=== PATIENT | male | born 1955 | race Caucasian/White ===

== ENCOUNTER 2017-11-24 07:51 | Outpatient (CLI) | payer BC ==
[~2017-11-24] VITALS: Ht 172.7 cm; Wt 86.4 kg
--- NOTE | ~2017-11-24 | HEMODYNAMI ---
PATIENT:OTILIA PAZ MEDICAL RECORD: [id number] : 57 LOCATION:[facility] ADMISSION DATE: 11/24/17 Generatedon:11/24/201712:41 Patient name: OTILIA APZ Patient #: [id number] : 1955 Date of study: 11/24/2017 Page: Of Hemodynamic Procedure Report Patient Data Patient Demographics Procedure consent was obtained First Name: OTILIA Gender: Male Last Name: BRANDI : 1955 [facility] Initial: ORLANDO Age: 62 year(s) Patient #: [id number] Race: SSN: [id number] Additional ID: [id number] Contact details Address: [address] [place] [address] rd State[facility] Zip code: [address] Past Medical History Allergies Allergen Reaction Date Comments Reported Statins 11/24/2017 Statins 11/24/2017 Admission Admission Data Admission Date: 11/24/2017 Admission Time: 7:51 Lab Results Lab Result Date: 11/24/2017 Lab Result Time: 0:00 Biochemistry Name Units Result Min Max BUN mg/dl 21 --(----)-* 7 18 Creatinine mg/dl 1 --(--*-)-- 0.6 1.3 Procedure Procedure Types Cath Procedure Diagnostic Procedure [facility] w/Coronaries PCI Procedure Coronary Stent Coronary Stent Initial Procedure Description Procedure Date Procedure Date: 11/24/2017 Procedure Start Time: 12:26 Procedure End Time: 12:40 Procedure Staff Name Function Gonzalo Barriga MD Performing Physician Gómez Acevedo RT Monitor Juan F Davenport RN Nurse Gonsalo Quiñonez RT Scrub Procedure Data Cath Procedure Fluoroscopy Diagnostic fluoroscopy Total fluoroscopy Time: 1.8 time: 1.8 min min Diagnostic fluoroscopy Total fluoroscopy dose: dose: 184.42 mGy 184.42 mGy Contrast Material Contrast Material Type Amount (ml) Isovue 300 77 Entry Location Entry Primary Successful Side Size Upsize Upsize Entry Closure Succes sful Closure Location (Fr) 1 (Fr) 2 (Fr) Remarks Device Remarks Femoral Right 5 Fr 6 Fr Exoseal artery Short Estimated blood loss: 10 ml Diagnostic catheters Device Type Used For End Catheter Placement MULTIPACK Pigtail 5 Fr Procedure catheter MULTIPACK JL 4.0 5Fr Procedure catheter MULTIPACK 3DRC 5Fr Procedure catheter Procedure Medications Medication Administration Route Dosage Oxygen etCO2 Nasal cannula 2 l/min Heparin Flush Bag added to field 2 bags (1000units/500ml NS) 0.9% NaCl I.V. 100 ml/hr Fentanyl I.V. 50 mcg Versed I.V. 1 mg Fentanyl I.V. 50 mcg Versed I.V. 1 mg Fentanyl I.V. 50 mcg Heparin Bolus I.V. 4000 units Fentanyl I.V. 50 mcg Hemodynamics Rest Heart Rate: 68 (bpm) Pressure Samples Time Site Value (mmHg) Purpose Heart Use Rate(bpm) 12:27 LV 45/11,20 Snapshot 78 Snapshots Pre Cath Intra NCS Post Cath Vital Signs Time Heart Resp SPO2 etCO2 NIBP (mmHg) Rhythm Pain Sedation Rate (ipm) (%) (mmHg) Status Level (bpm) 12:06:03 71 17 99 0 No Cuff NSR 0 (11) 10(A) , No pain 12:08:14 66 16 99 25.4 149/79(126) NSR 0 (11) 10(A) , No pain 12:12:32 66 16 97 23.9 138/72(113) NSR 0 (11) 10(A) , No pain 12:16:52 69 17 96 25.4 142/80(107) NSR 0 (11) 10(A) , No pain 12:21:08 69 17 95 26.9 136/83(116) NSR 0 (11) 10(A) , No pain 12:25:25 64 17 92 29.2 129/84(101) NSR 0 (11) 9(A) , No pain 12:29:40 72 16 98 35.9 136/83(106) NSR 0 (11) 9(A) , No pain 12:34:00 84 17 96 29.9 136/80(108) NSR 0 (11) 9(A) , No pain 12:37:34 77 16 96 35.2 132/79(103) NSR 0 (11) 9(A) , No pain Medications Time Medication Route Dose Verified Delivered Reason Notes Effectiveness by by 12:23:05 Oxygen etCO2 2 Gonzalo Rogel Per physician Nasal l/min Nithya Davenport RN cannula 12:23:54 Heparin Flush added 2 Gonzalo Rogel used for Bag to bags Nithya Davenport RN procedure (1000units/500ml field NS) 12:24:02 0.9% NaCl I.V. 100 Gonzalo Rogel Per physician ml/hr Nithya Davenport RN 12:24:10 Fentanyl I.V. 50 Gonzalo Portery for sedation mcg Nithya Davenport RN 12:24:16 Versed I.V. 1 mg Gonzalo Portery for sedation Nithya Davenport RN 12:25:21 Fentanyl I.V. 50 Gonzalo Portery for sedation mcg Nithya Davenport RN 12:25:25 Versed I.V. 1 mg Gonzalo Portery for sedation Nithya Davenport RN 12:27:31 Fentanyl I.V. 50 Gonzalo Rogel for sedation mcg Nithya Davenport RN 12:31:43 Heparin Bolus I.V. 4000 Gonzalo Juan F for units Nithya Davenport RN anticoagulation 12:31:49 Fentanyl I.V. 50 Gonzalo Rogel for sedation mcg Nithya Davenport RN Procedure Log Time Note 11:44:32 Diagnostic Cath Status : Elective 11:48:28 Gonsalo Quiñonez RT(R) sent for patient. Start room use. 11:48:30 Time tracking: Regular hours (M-F 7:00 - 5:00) 11:48:41 Plan of Care:Hemodynamics will remain stable., Cardiac rhythm will remain stable., Comfort level will be maintained., Respiratory function will remain adequate., Patient/ family verbilizes understanding of procedure., Procedure tolerated without complication., Recovers from procedure without complications.. 12:04:43 Patient received from Pre/Post Procedure Room to CCL 3 Alert and oriented. Tansferred to table in Supine position. 12:05:12 Vital chart was started 12:06:00 Warm blankets applied, and chris hugger turned on for patient comfort. 12:06:01 Correct patient and procedure confirmed by team. 12:06:03 Signed procedure consent form obtained from patient. 12:06:06 ECG and BP/O2 sat monitors applied to patient. 12:06:18 Baseline sample Acquired. 12:06:40 Rhythm: sinus rhythm 12:07:22 Full Disclosure recording started 12:07:45 H&P Date Dictated: 11/15/2017 Within 30 days and on chart., H&P Addendum completed by physician on day of procedure. (MUST COMPLETE FOR ALL OUTPATIENTS). 12:07:47 Pre-procedure instructions explained to patient. 12:07:49 Pre-op teaching completed and patient verbalized understanding. 12:07:51 Family in waiting room. 12:07:55 Patient NPO since Midnight. 12:08:15 Patient allergic to Statins 12:08:38 Patient allergic to Statins 12:09:00 Patient allergic to Niacin 12:09:43 Is the patient allergic to Iodine/contrast media? No. 12:10:03 Is patient on blood thinner?Yes 12:10:08 ACC The patient was administered the following blood thiners within the last 24 hours: ACCPlavix 12:10:13 Patient diabetic? No. 12:10:18 ----Pre-sedation anethsthesia assessment.---- 12:10:20 Previous problem with sedation/anesthesia? No ? 12:10:22 Snore? Yes 12:10:34 Sleep apnea? No 12:10:35 Deviated septum? No 12:10:42 Opens mouth fully? Yes 12:10:44 Sticks out tongue? Yes 12:10:47 Airway obstruction? No ? 12:10:55 Dentures? No ? 12:12:16 Pre procedure: right dorsailis pedis pulse 2+ Normal; easily identifiable; not easily obliterated 12:12:20 Patient pain scale 0/10 ?. 12:12:31 IV patent on arrival in left forearm with 0.9% NaCl at O. 12:14:37 Lab Result : BUN 21 mg/dl 12:14:37 Lab Result : Creatinine 1 mg/dl 12:14:43 Lab results completed and on chart. 12:14:56 Right groin area was prepped with chlora-prep and draped in sterile fashion 12:14:58 Alarms reviewed by R. N. 12:14:58 Sharps counted by scrub and verified by R.N. 12:23:05 Oxygen 2 l/min etCO2 Nasal cannula was administered by Juan F Davenport RN; Per physician; 12:23:30 Physician arrived 12::31 --------ALL STOP TIME OUT------ 12::32 Final Timeout: patient, procedure, and site verified with staff and physician. All members of the team are in agreement. 12:23:34 Right groin site verified by team. 12:23:38 Physical assessment completed. ASA score P 2 - A patient with mild systemic disease as per Gonzalo Barriga MD. 12:23:42 Sedation plan: IV Moderate Sedation Medication:Versed, Fentanyl 12:23:54 Heparin Flush Bag (1000units/500ml NS) 2 bags added to field was administered by Juan F Davenport RN; used for procedure; 12:24:02 0.9% NaCl 100 ml/hr I.V. was administered by Juan F Davenport RN; Per physician; 12:24:10 Fentanyl 50 mcg I.V. was administered by Juan F Davenport RN; for sedation; 12:24:16 Versed 1 mg I.V. was administered by Juan F Davenport RN; for sedation; 12:24:39 Use device set Femoral Dx 12:24:41 ACIST Syringe (88942) opened to sterile field. 12:24:42 Bag Decanter (2002S) opened to sterile field. 12:24:42 Medline Cath Pack ([id number]) opened to sterile field. 12:24:43 DIAGNOSTIC WIRE .035 260cm J wire (492501) opened to sterile field. 12:24:45 ACIST Hand Control (57149) opened to sterile field. 12:24:46 ACIST Manifold (55375) opened to sterile field. 12:25:20 DIAGNOSTIC Multipack 5Fr catheter set (MR1371) opened to sterile field. 12:25:21 Fentanyl 50 mcg I.V. was administered by Juan F Davenport RN; for sedation; 12:25:21 Tegaderm 4 x 4 (1626W) opened to sterile field. 12:25:23 SHEATH Prelude 5Fr 0.035 (CSD-8Q-38-035) opened to sterile field. 12:25:25 Versed 1 mg I.V. was administered by Juan F Davenport RN; for sedation; 12:25:30 Procedure started. 12:26:23 Local anesthetic to right femoral artery with Lidocaine 2% by Gonzalo Barriga MD.INITIAL ACCESS ONLY 12:27:14 A 5 Fr sheath was inserted into the Right Femoral artery 12::24 A MULTIPACK Pigtail 5 Fr catheter was advanced over the wire and used for Procedure. 12::31 Fentanyl 50 mcg I.V. was administered by Juan F Davenport RN; for sedation; 12::39 Zero performed for pressure channel P1 12::59 LV hemodynamics recorded. 12:28:00 LV gram done using ISLAS 12::06 EF : 25 % 12::14 A MULTIPACK JL 4.0 5Fr catheter was advanced over the wire and used for Procedure. 12:28:34 LCA angiography performed. 12::59 Catheter removed. 12::41 A MULTIPACK 3DRC 5Fr catheter was advanced over the wire and used for Procedure. 12:29:45 RCA angiography performed. 12:29:48 Catheter removed. 12:29:50 Proceeding to intervention. 12:29:53 SHEATH 6Fr Prelude ([id number]) opened to sterile field. 12:29:56 CHOICE PT Extra Support 182cm wire ([id number]) opened to sterile field. 12:29:57 INFLATOR Merit BasixCompak (SE6612) opened to sterile field. 12:30:58 GUIDE 6FR EBU 3.5 catheter (FK4VQT31) opened to sterile field. 12:31:17 Sheath upsized to a 6 Fr Short. 12:31:29 6 Fr ebu 3.5 guide catheter was inserted over the wire 12::43 Heparin Bolus 4000 units I.V. was administered by Juan F Davenport RN; for anticoagulation; 12:31:49 Fentanyl 50 mcg I.V. was administered by Juan F Davenport RN; for sedation; 12:32:02 CHOICE wire advanced. 12:32:07 Wire advanced across lesion. 12:33:17 Place stent Inflation Number: 1 A VERONICA RX 2.25 x 15 stent ([id number]) was prepped and advanced across the Mid LAD. The stent was deployed at 17 LUIS for 0:10 (min:sec). 12:35:22 Stent catheter was removed intact over wire. 12:35:23 Wire removed. 12:35:23 Guide catheter removed. 12:35:33 EXOSEAL 6Fr (EX600) opened to sterile field. 12:35:54 Sheath removed intact; hemostasis achieved with Exoseal to the Right Femoral artery. 12:35:56 Procedure ended.(Physican Out) 12:36:32 Fluoroscopy time 01.80 minutes. 12:36:39 Fluoroscopy dose: 184.42 mGy 12:36:39 Flurop Dose total: 184.42 12:36:50 Contrast amount:Isovue 300 77ml. 12:36:52 Sharps counted by scrub and verified by R.N. 12:37:20 Procedure type changed to Cath procedure, Diagnostic procedure, LHC, LHC w/Coronaries, PCI procedure, Coronary Stent, Coronary Stent Initial 12:39:53 Insertion/operative site no bleeding no hematoma. 12:39:56 Post-op/insertion site Right Femoral artery dressed using a 4 x 4 and Tegaderm. 12:40:01 Post right femoral artery:stable 12:40:13 Post Procedure Pulses reassessed and unchanged 12:40:16 Post-procedure physical assessment completed. ASA score P 2 - A patient with mild systemic disease as per Gonzalo Barriga MD. 12:40:20 Post procedure rhythm: sinus rhythm 12:40:23 Estimated blood loss: 10 ml 12:40:35 Post procedure instruction explained to patient.Patient verbalizes understanding. 12:40:37 Patient needs reinforcement of post procedure teaching. 12:40:39 Procedure and supply charges have been captured, reviewed, submitted and are correct. 12:40:41 Vital chart was stopped 12:40:42 See physician's report for complete and final results. 12:40:44 Report given to Pre/Post Procedure Room. 12:40:54 Patient transfered to Pre/Post Procedure Room with Stretcher. 12:40:58 Procedure ended. 12:40:58 Full Disclosure recording stopped 12:41:02 End room use (Document Last) Intervention Summary Intervention Notes Time ActionType Lesion and Equipment Used Action# Pressure Duration Attributes 12:33:17 Place stent Mid LAD VERONICA RX 2.25 x 1 17 00:10 15 stent ([id number]) Device Usage Item Name Manufacture Quantity Catalog Number Hospital Part Current Minimal Lot# / Charge Number Stock Stock Serial# Code ACIST Syringe Acist 1 07477 046352 113533 913521 20 (43753) Medical Systems Inc Bag Decanter Microtek 1 2001S 033228 73851 107297 5 (2001S) Medical Inc. Medline Cath Cardinal 1 [id number] 379729 01146 851687 5 Pack Health ([id number]) DIAGNOSTIC WIRE St Riccardo 1 607714 814793 096125 310605 30 .035 260cm J wire (348773) ACIST Hand Acist 1 07353 953442 775286 326357 5 Control (80189) [employer] Systems Inc ACIST Manifold Acist 1 78521 917536 759867 199100 5 (90148) Medical Systems Inc DIAGNOSTIC Cardinal 1 [id number] 034329 53180 705175 30 Multipack 5Fr Health catheter set (QZ1274) Tegaderm 4 x 4 3M 1 1626W 055970 144973 369568 5 (1626W) SHEATH Prelude Merit 1 HDS-2D-53-035 612571 078632 965382 5 5Fr 0.035 Medical (UXB-5T-30-035) MULTIPACK Cardinal 1 084498 5 Pigtail 5 Fr Health catheter MULTIPACK JL Cardinal 1 809131 5 4.0 5Fr Health catheter MULTIPACK 3DRC Cardinal 1 908519 5 5Fr catheter Health SHEATH 6Fr Merit 1 [id number] 898567 001511 742721 5 Prelude Medical ([id number]) CHOICE PT Extra [place] 1 [id number] 617635 818563 623276 5 Support 182cm Scientific wire ([id number]) INFLATOR Merit Merit 1 YK1013 903897 864057 748626 15 [facility] Medical (HV7076) GUIDE 6FR EBU Medtronic 1 [id number] 872701 16241 803601 3 3.5 catheter ([id number]) VERONICA RX 2.25 x Medtronic 1 [id number] 923369 5931240 814326 5 [id number] 15 stent ([id number]) EXOSEAL 6Fr Cardinal 1 EX600 182482 230088 493261 10 (EX600) Health Signature Audit [place] Stage Time Signature Unsigned Intra-Procedure 11/24/2017 Gómez Acevedo 12:41:49 PM RT(R) (CV) Signatures Monitor : Gómez Acevedo RT Signature : Date : Time : [address] [place] [address]
--- NOTE | ~2017-11-24 | OP ---
PATIENT NAME: OTILIA PAZ MEDICAL RECORD: [id number] :57 LOCATION:D.CAT ADMISSION DATE: SURGEON: STANTON NICE MD DATE OF OPERATION: 11/24/2017 PROCEDURES: 1. PTCA and stent of LAD. 2. Left heart catheterization. 3. Selective coronary angiography. 4. Left ventriculogram. INDICATION: Angina, coronary artery disease, and cardiomyopathy. PROCEDURE IN DETAIL: After informed consent was obtained and after detailed explanation of risks, benefits as well as alternative therapies, the patient elected to proceed with angiogram and angioplasty. The right femoral area was prepped and draped in normal sterile fashion. Right femoral artery was cannulated via modified Seldinger technique with placement of 6-Barbadian sheath. All catheters exchanged through this sheath. FINDINGS: Left ventriculogram was performed in standard 30-degree ISLAS view reveals global hypokinesis throughout all segments. Overall ejection fraction 25%. SELECTIVE CORONARY ANGIOGRAPHY: 1. Left main showed no significant angiographic disease. 2. Left anterior descending has previously placed stents. There is up to 85% in-stent restenosis in the mid vessel. 3. Left circumflex has previously placed stents, these are widely patent. 4. Right coronary is widely patent. PTCA AND STENT OF THE LAD: The stent used is 2.25 x 15 mm Thien taken to 17 atmospheres. Result was 0% residual stenosis. OVERALL IMPRESSION: Successful PTCA and stent of the LAD going from 85% initial stenosis to 0% residual. TRANSINT:[id number] Voice Confirmation ID: [id number] DOCUMENT ID: [id number] STANTON NICE MD at 2002 CC: [id number] DICTATION DATE: 11/24/17 1240 TIRE BALANCER: 11/24/17 1334 DEP CLI 11/24/17 [place] [address]
[~2017-11-24 07:51] MED LIST: ALTACE2.5 MG PO; BAYER CHEWABLE81 MG PO; LOPRESSOR25 MG PO; NITROQUICK0.4 MG SL; PLAVIX75 MG PO; PRAVACHOL40 MG PO; PRAVASTATIN SOD10 MG PO; TOPAMAX25 MG PO; TOPAMAX50 MG PO; WELLBUTRIN100 MG PO; ZITHROMAX250 MG PO; ZITHROMAX500 MG PO
[2017-11-24] MEDS ORDERED: PLAVIX75 MG PO (08:14)
[2017-11-24 08:30] VITALS: BP 149/84; Ht 172.7 cm; Wt 86.4 kg
[2017-11-24 09:00] LABS: CALC OSMOLALITY 281 mosm/kg (275-300); CHLORIDE - SERUM 105 mmol/L (98-107); GLUCOSE 107 mg/dL (74-106); POTASSIUM - SERUM 3.7 mmol/L (3.5-5.1); SODIUM 140 mmol/L (136-145); UREA NITROGEN 21 mg/dL (7-18); eGFR NON AFRICAN AMERICAN 81 mL/min (90-120)
[2017-11-24 09:02] LABS: BASOPHILS 0.3 % (0-2); EOSINOPHILS 1.9 % (0-7); HEMATOCRIT 48.1 % (42.0-54.0); HEMOGLOBIN 16.7 g/dL (13.5-17.5); IMMATURE GRANULOCYTES 0.2 % (0-5); LYMPHOCYTES 22.9 % (15-50); MCH 29.5 pg (26.0-34.0); MCHC 34.7 g/dL (31.0-37.0); MEAN PLATELET VOLUME 11.5 fL (7.4-10.4); MONOCYTES 8.8 % (2-11); NEUTROPHILS 65.9 % (40-80); RBC 5.66 10x6/uL (4.20-6.10); WBC 9.7 10x3/uL (4.8-10.8)
[2017-11-24 09:07] LABS: PLATELET COUNT 211 10x3/uL (130-400)
== END 2017-11-24 16:45 | disposition home or self-care (01) ==
LOC: D.CATH 07:51
PROVIDERS: Internal Medicine Interventional Cardiology
DX: I25.119 Atherosclerotic heart disease of native coronary artery with unspecified angina pectoris (principal); R06.09 Other forms of dyspnea; E78.5 Hyperlipidemia, unspecified; I10 Essential (primary) hypertension; I42.9 Cardiomyopathy, unspecified; Z01.812 Encounter for preprocedural laboratory examination

== ENCOUNTER → 2017-12-27 16:51 | Outpatient (CLI) | payer BC ==
[2017-11-24 08:30] VITALS: BMI 28.9
[2017-12-27 17:53] LABS: CALC OSMOLALITY 281 mosm/kg (275-300); CALCIUM 8.4 mg/dL (8.5-10.1); CARBON DIOXIDE 23.8 mmol/L (21.0-32.0); CHLORIDE - SERUM 106 mmol/L (98-107); CREATININE - SERUM 0.9 mg/dL (0.6-1.3); GLUCOSE 101 mg/dL (74-106); POTASSIUM - SERUM 4.3 mmol/L (3.5-5.1); SODIUM 139 mmol/L (136-145); UREA NITROGEN 24 mg/dL (7-18); eGFR NON AFRICAN AMERICAN > 90 mL/min (90-120)
== END | disposition home or self-care (01) ==
LOC: D.LABREF 16:51
PROVIDERS: Internal Medicine Interventional Cardiology
DX: Z00.00 Encounter for general adult medical examination without abnormal findings (principal)

== ENCOUNTER → 2018-10-03 08:37 | Outpatient (CLI) | payer BC ==
[2017-11-24 08:30] VITALS: BMI 28.9
[~2018-10-03 08:37] MED LIST changes: +COREG6.25 MG; +DECADRON0.5 MG PO; +ENTRESTO 49 MG1 EACH PO; +PROTONIX40 MG PO
--- NOTE | 2018-10-05 16:42 | ST ---
PATIENT:OTILIA PAZ MEDICAL RECORD: [id number] SEX: M LOCATION:[facility] ORDER #: ADMISSION DATE: 10/03/18 AGE OF PATIENT: 63 REFERRING PHYSICIAN: INTERPRETING PHYSICIAN: STANTON NICE MD DATE OF SERVICE: 10/03/2018 Nuclear Stress Test INDICATIONS: Angina, shortness of breath, coronary artery disease, and hypertension. He was exercised on a standard [place] protocol for 8 minutes achieving greater than 85% max target heart rate response with 26 mCi of sestamibi injected at peak stress, 9 mCi used previously for rest images. FINDINGS: Gated SPECT reveals a preserved ejection fraction of 53% with good wall motioning and thickening and brightening throughout all segments. SPECT IMAGING: Cardiolite was used as myocardial fusion agent. There is reversibility anteriorly, laterally, and apically. This includes the basal, mid, apical, anterior segments as well as the apex itself; apical lateral, mid lateral, basal lateral segments. OVERALL IMPRESSION: This is an abnormal nuclear stress test with a large area of reversible ischemia anteriorly, laterally, and apically suggestive of multivessel coronary artery disease and hemodynamically significant disease. We will proceed with coronary angiography as followup study. TRANSINT:[id number] Voice Confirmation ID: [id number] DOCUMENT ID: [id number] STANTON NICE MD at 1642 CC: TATYANA WORRELL [id number] DICTATION DATE: 10/03/18 1542 [employer]ITE GOODS APPLIANCE TECH: 10/04/18 0432 DEP CLI 10/03/18 [place] [id number] [place] [id number]
== END | disposition home or self-care (01) ==
LOC: D.HCCARDIO 08:37
PROVIDERS: ATTEND Internal Medicine Interventional Cardiology
DX: I25.119 Atherosclerotic heart disease of native coronary artery with unspecified angina pectoris (principal)

== ENCOUNTER 2018-10-05 08:04 | Outpatient (CLI) | payer BC ==
[~2018-10-05] VITALS: Ht 172.7 cm; Wt 87.7 kg
--- NOTE | ~2018-10-05 | HEMODYNAMI ---
PATIENT:OTILIA PAZ MEDICAL RECORD: [id number] : 57 LOCATION:[facility] ADMISSION DATE: 10/05/18 Generatedon:10/05/201810:44 Patient name: OTILIA PAZ Patient #: [id number] : 1955 Date of study: 10/05/2018 Page: Of Hemodynamic Procedure Report Patient Data Patient Demographics Procedure consent was obtained First Name: OTILIA Gender: Male Last Name: BRANDI : 1955 [facility] Initial: ORLANDO Age: 63 year(s) Patient #: [id number] Race: SSN: [id number] Additional ID: [id number] Contact details Address: [address] [place] [address] rd State: [place] City: [place] Zip code: [address] Past Medical History Allergies Allergen Reaction Date Comments Reported Statins 11/24/2017 Statins 11/24/2017 Other allergy 10/05/2018 Niacin, Statins Admission Admission Data Admission Date: 10/05/2018 Admission Time: 8:04 Admit Source: Other Lab Results Lab Result Date: 10/05/2018 Lab Result Time: 8:30 Biochemistry Name Units Result Min Max BUN mg/dl 26 --(----)-* 7 18 Creatinine mg/dl 1.1 --(--*-)-- 0.6 1.3 CBC Name Units Result Min Max Hematocrit % 48.1 --(--*-)-- 42 54 Hemoglobin g/dl 16.8 --(---*)-- 13.5 17.5 Procedure Procedure Types Cath Procedure Diagnostic Procedure LHC LH w/Coronaries FFR/IVUS FFR Initial FFR Additional Sedation Charges Moderate Sedation up to 30 minutes PCI Procedure Coronary Stent Coronary Stent Initial Procedure Description Procedure Date Procedure Date: 10/05/2018 Procedure Start Time: 10:18 Procedure End Time: 10:44 Procedure Staff Name Function Gonzalo Barriga MD Performing Physician Shaji Pryor RT Monitor Gonsalo Quiñonez RT Scrub Sami Bloom RN Nurse Juan F Davenport RN Breaker Layer Procedure Data Cath Procedure Fluoroscopy Diagnostic fluoroscopy Total fluoroscopy Time: 7.3 time: 7.3 min min Diagnostic fluoroscopy Total fluoroscopy dose: dose: 1031 mGy 1031 mGy Contrast Material Contrast Material Type Amount (ml) Isovue 370 110 Entry Location Entry Primary Successful Side Size Upsize Upsize Entry Closure Zuniga ccessful Closure Location (Fr) 1 (Fr) 2 (Fr) Remarks Device Remarks Radial Right 6 Fr Mechanical artery Short Compression Estimated blood loss: 10 ml Diagnostic catheters Device Type Used For End Catheter Placement DIAGNOSTIC [place] 110cm 5 Procedure Fr catheter ([id number]) Procedure Complications No complications Procedure Medications Medication Administration Route Dosage 0.9% NaCl I.V. 100 ml/hr Oxygen etCO2 Nasal cannula 2 l/min Heparin Flush Bag added to field 2 bags (1000units/500ml NS) Lidocaine 2% added to field 20 Radial Cocktail added to field 1 syringe (Verapamil 2mg/Nitro 400mcg/Heparin 1500units) Versed I.V. 2 mg Fentanyl I.V. 100 mcg Versed I.V. 1 mg Radial Cocktail I.A. 1 syringe (Verapamil 2mg/Nitro 400mcg/Heparin 1500units) Heparin Bolus I.V. 4000 units Integrilin (Bolus I.V. 7.9 ml 2mg/ml) Integrilin (Bolus wasted 2.1 ml 2mg/ml) Versed I.V. 1 mg Plavix P.O. 600 mg Hemodynamics Rest HGB: 16.8 (g/dl) Heart Rate: 61 (bpm) Pressure Samples Time Site Value (mmHg) Purpose Heart Use Rate(bpm) 10:19 LV 46/13,18 Snapshot 66 10:19 AO 88/64(76) Pullback 68 10:19 LV 81/10,15 Pullback 68 Gradients Valve Time Site 1 Site 2 Mean SEP/DFP Peak To Heart Use (mmHg) (sec/min) Peak Rate (mmHg) (bpm) Aortic 10:19 LV AO 0 68 81/10,15 88/64(76) Calculations Valve P-P Mean Valve Index Valve Source Name Gradient Area Flow (cm2) Aortic 0 0 Snapshots Pre Cath Intra NCS Post Cath Vital Signs Time Heart Resp SPO2 etCO2 NIBP Rhythm Pain Sedation Rate (ipm) (%) (mmHg) (mmHg) Status Level (bpm) 9:43:10 59 23 98 0 124/73(85) NSR 0 (11) 10(A) , No pain 9:47:20 64 18 98 27.1 127/77(93) NSR 0 (11) 10(A) , No pain 9:51:32 58 20 96 31.6 119/70(87) NSR 0 (11) 10(A) , No pain 9:55:41 59 21 96 30.1 127/70(83) NSR 0 (11) 10(A) , No pain 9:59:53 61 23 95 26.3 117/72(83) NSR 0 (11) 10(A) , No pain 10:04:05 56 19 94 30.8 118/63(80) NSR 0 (11) 10(A) , No pain 10:08:15 63 17 95 28.6 113/72(80) NSR 0 (11) 10(A) , No pain 10:12:21 60 21 92 27.1 118/74(85) NSR 0 (11) 9(A) , No pain 10:16:33 56 14 91 12.7 120/65(77) NSR 0 (11) 9(A) , No pain 10:20:47 61 19 92 27.1 104/60(76) NSR 0 (11) 10(A) , No pain 10:24:55 63 18 92 33.8 108/59(76) NSR 0 (11) 10(A) , No pain 10:29:05 66 21 91 28.6 107/60(75) NSR 0 (11) 10(A) , No pain 10:33:12 60 21 92 29.3 104/64(74) NSR 0 (11) 10(A) , No pain 10:37:20 59 19 92 30.8 104/57(75) NSR 0 (11) 10(A) , No pain 10:41:28 59 23 92 26.3 103/61(77) NSR 0 (11) 10(A) , No pain Medications Time Medication Route Dose Verified Delivered Reason Not es Effectiveness by by 9:49:27 0.9% NaCl I.V. 100 Sami Sami Per physician ml/hr Wolf Bloom RN RN 9:49:38 Oxygen etCO2 2 l/min Sami Sami for low 02 sats Nasal Wolf Bloom cannula RN RN 9:49:49 Heparin Flush added 2 bags Sami Sami used for Bag to Wolf Bloom procedure (1000units/500ml field RN RN NS) 9:50:00 Lidocaine 2% added 20ml Sami Sami for local to vial Lorigan Wolf anesthetic field RN RN 9:50:12 Radial Cocktail added 1 Sami Sami used for (Verapamil to syringe Lorigan Lorpooja procedure 2mg/Nitro field RN RN 400mcg/Heparin 1500units) 10:10:24 Versed I.V. 2 mg Sami Sami for sedation Wolf Bloom RN RN 10:10:39 Fentanyl I.V. 100 mcg Sami Sami for sedation Wolf Bloom RN RN 10:13:50 Versed I.V. 1 mg Sami Sami for sedation Wolf Bloom RN RN 10:18:33 Radial Cocktail I.A. 1 Sami Gonzalo for (Verapamil syringe Wolf Taumelanie MD vasodilation 2mg/Nitro RN 400mcg/Heparin 1500units) 10:24:47 Heparin Bolus I.V. 4000 Sami Sami for units Wolf Bloom anticoagulation RN RN 10:33:08 Integrilin I.V. 7.9 ml Sami Sami for (Bolus 2mg/ml) Wolf Bloom antiplatelet RN RN therapy 10:33:22 Integrilin wasted 2.1 ml Sami Sami to sharp's (Bolus 2mg/ml) Wolf Bloom RN RN 10:34:12 Versed I.V. 1 mg Sami Sami for sedation Wolf Bloom RN RN 10:40:24 Plavix P.O. 600 mg Sami Sami for Wolf Bloom antiplatelet RN RN therapy Procedure Log Time Note 9:10:45 Juan F Davenport RN sent for patient. Start room use. 9:35:07 Informed consent obtained and on chart 9:35:10 Admit Source: Other 9:35:43 Diagnostic Cath status Elective 9:35:50 Time tracking: Regular hours (M-F 7:00 - 5:00) 9:35:53 Plan of Care:Hemodynamics will remain stable., Cardiac rhythm will remain stable., Comfort level will be maintained., Respiratory function will remain adequate., Patient/ family verbilizes understanding of procedure., Procedure tolerated without complication., Recovers from procedure without complications.. 9:35:57 Patient received from Pre/Post Procedure Room to CCL 2 Alert and oriented. Tansferred to table in Supine position. 9:35:58 Warm blankets applied, and chris hugger turned on for patient comfort. 9:35:59 Correct patient and procedure confirmed by team. 9:36:00 ECG and BP/O2 sat monitors applied to patient. 9:36:09 H&P Date Dictated: 09/25/2018 Within 30 days and on chart., H&P Addendum completed by physician on day of procedure. (MUST COMPLETE FOR ALL OUTPATIENTS). 9:36:12 Pre-procedure instructions explained to patient. 9:36:12 Pre-op teaching completed and patient verbalized understanding. 9:36:13 Family in waiting room. 9:36:14 Patient NPO since Midnight. 9:36:26 Patient allergic to Other allergyNiacin, Statins 9:41:58 Vital chart was started 9:49:27 0.9% NaCl 100 ml/hr I.V. was administered by Sami Bloom RN; Per physician; 9:49:38 Oxygen 2 l/min etCO2 Nasal cannula was administered by Sami Bloom RN; for low 02 sats; 9:49:49 Heparin Flush Bag (1000units/500ml NS) 2 bags added to field was administered by Sami Bloom RN; used for procedure; 9:50:00 Lidocaine 2% 20ml vial added to field was administered by Sami Bloom RN; for local anesthetic; 9:50:12 Radial Cocktail (Verapamil 2mg/Nitro 400mcg/Heparin 1500units) 1 syringe added to field was administered by Sami Bloom RN; used for procedure; 9:54:12 Baseline sample Acquired. 9:54:17 Rhythm: sinus rhythm 9:54:18 Full Disclosure recording started 9:54:22 Is the patient allergic to Iodine/contrast media? No. 9:54:23 Is patient on blood thinner?No 9:54:24 Patient diabetic? No. 9:54:28 Previous problem with sedation/anesthesia? No ? 9:54:34 Snore? Yes 9:54:35 Sleep apnea? No 9:54:37 Deviated septum? No 9:54:39 Opens mouth fully? Yes 9:54:40 Sticks out tongue? Yes 9:54:42 Airway obstruction? No ? 9:54:44 Dentures? No ? 9:54:47 Pre procedure: right dorsailis pedis pulse 2+ Normal; easily identifiable; not easily obliterated 9:54:50 Patient pain scale 0/10 ?. 9:54:52 Modified Se's test Ulnar < 7 seconds 9:55:37 IV patent on arrival in left forearm with 0.9% NaCl at [facility]. 9:57:13 Lab Result : BUN 26 mg/dl 9:57:13 Lab Result : Creatinine 1.1 mg/dl 9:57:13 Lab Result : Hematocrit 48.1 % 9:57:13 Lab Result : Hemoglobin 16.8 g/dl 9:57:17 Lab results completed and on chart. 9:57:19 Right Radial & Right Groin area was prepped with chlora-prep and draped in sterile fashion 9:57:20 Alarms reviewed by R. N. 9:57:20 Sharps counted by scrub and verified by R.N. 9:57:22 Use device set Radial Dx or PCI 9:57:23 ACIST Syringe (07049) opened to sterile field. 9:57:23 Medline Cath Pack ([id number]) opened to sterile field. 9:57:24 Bag Decanter (2002S) opened to sterile field. 9:57:24 ACIST Hand Control (02383) opened to sterile field. 9:57:25 ACIST Manifold (16270) opened to sterile field. 9:57:25 Tegaderm 4 x 4 (1626W) opened to sterile field. 9:57:25 MBrace Wrist Support ([id number]) opened to sterile field. 9:57:26 SHEATH 6FR Slender (21-1060) opened to sterile field. 9:57:27 DIAGNOSTIC WIRE .035 260cm J wire (300263) opened to sterile field. 10:01:26 Zero performed for pressure channel P1 10:09:18 Physician arrived 10::19 --------ALL STOP TIME OUT------ 10::19 Final Timeout: patient, procedure, and site verified with staff and physician. All members of the team are in agreement. 10:09:21 Right Radial & Right Groin site verified by team. 10:09:24 Maximum allowable Isovue 300 dose 300ml. Physician notified. (300ml for normal creatinines. For patients with creatinine of 1.7 or higher multiply weight(kg) x 5 divided by creatinine.) 10::28 Fire Safety Assessment: A--An alcohol-based skin anteseptic being used preoperatively., C--Open oxygen or nitrous oxide is being used., D--An ESU, laser, or fiber-optic light is being used. 10:: Physical assessment completed. ASA score P 2 - A patient with mild systemic disease as per Gonzalo Barriga MD. 10::35 Sedation plan: IV Moderate Sedation Medication:Versed, Fentanyl 10::24 Versed 2 mg I.V. was administered by Sami Bloom RN; for sedation; 10::39 Fentanyl 100 mcg I.V. was administered by Sami Bloom RN; for sedation; 10:13:50 Versed 1 mg I.V. was administered by Sami Bloom RN; for sedation; 10:17:32 Procedure started. 10:18:00 Local anesthetic to right radial artery with Lidocaine 2% by Gonzalo Barriga MD.INITIAL ACCESS ONLY 10:18:31 A 6 Fr Short sheath was inserted into the Right Radial artery 10:18:33 Radial Cocktail (Verapamil 2mg/Nitro 400mcg/Heparin 1500units) 1 syringe I.A. was administered by Gonzalo Barriga MD; for vasodilation; 10:18:37 A DIAGNOSTIC [place] 110cm 5 Fr catheter (620201) was advanced over the wire and used for Procedure. 10:19:51 LV gram done using ISLAS 10::54 Injector settings: Ml/sec: 5, Volume: 15, 10:19:55 LV hemodynamics recorded. 10:20:08 EF : 35 % 10:20:20 [facility] Verrata Plus pressure wire (20636F) opened to sterile field. 10:20:26 INFLATOR Merit BasixCompak (YE5408) opened to sterile field. 10:20:31 LCA angiography performed. 10:21:23 RCA angiography performed. 10:22:24 GUIDE 6FR XBLAD 3.5 catheter ([id number]) opened to sterile field. 10:24:47 Heparin Bolus 4000 units I.V. was administered by Sami Bloom RN; for anticoagulation; 10::29 FFR/IFR wire advanced. 10:31:25 Wire advanced across lesion. 10:31:43 MID lesion measured at LAD with IFR 10:33:08 Integrilin (Bolus 2mg/ml) 7.9 ml I.V. was administered by Sami Bloom RN; for antiplatelet therapy; 10:33:22 Integrilin (Bolus 2mg/ml) 2.1 ml wasted was administered by Sami Bloom RN; to sharp's; 10:34:12 Versed 1 mg I.V. was administered by Sami Bloom RN; for sedation; 10:34:40 Place stent Inflation Number: 1 A COBRA RX 3.0 X 24 Stent was prepped and advanced across the Mid LAD. The stent was deployed at 13 LUIS for 0:10 (min:sec). 10:34:49 Inflation number: 2 The stent balloon was then re-inflated across the Mid LAD to 17 LUIS for 0:10 (min:sec). 10:35:34 TR BAND Standard ([id number]) opened to sterile field. 10:35:50 Stent catheter was removed intact over wire. 10:35:55 Wire redirected to CX. 10:38:12 CX lesion measured at 0.98 with IFR 10:38:18 Wire removed. 10:38:35 Guide catheter removed. 10:40:24 Plavix 600 mg P.O. was administered by Sami Bloom RN; for antiplatelet therapy; 10:40:25 Sheath removed intact; hemostasis achieved with Mechanical Compression to the Right Radial artery. 10:40:27 Procedure ended.(Physican Out) 10:41:01 Fluoroscopy time 07.30 minutes. 10:41:05 Flurop Dose total: 1031 10:41:05 Fluoroscopy dose: 1031 mGy 10:41:08 Contrast amount:Isovue 370 110ml. 10:41:13 Sharps counted by scrub and verified by R.N. 10:41:15 TR band inflated with 10cc of air. 10:41:15 Insertion/operative site no bleeding no hematoma. 10:41:19 Post right radial artery:stable, soft, clean and dry 10:41:21 Post Procedure Pulses reassessed and unchanged 10:41:37 Post-procedure physical assessment completed. ASA score P 2 - A patient with mild systemic disease as per Gonzalo Barriga MD. 10:41:39 Post procedure rhythm: unchanged. 10:41:41 Estimated blood loss: 10 ml 10:41:42 Post procedure instruction explained to patient.Patient verbalizes understanding. 10:41:43 Patient needs reinforcement of post procedure teaching. 10:42:31 Procedure type changed to Cath procedure, Diagnostic procedure, LHC, LHC w/Coronaries, FFR/IVUS, FFR Initial, FFR Additional, Sedation Charges, Moderate Sedation up to 30 minutes, PCI procedure, Coronary Stent, Coronary Stent Initial 10:43:53 Procedure and supply charges have been captured, reviewed, submitted and are correct. 10:43:55 Procedure Complication : No complications 10:43:57 Vital chart was stopped 10:43:57 See physician's report for complete and final results. 10:43:59 Report given to Pre/Post Procedure Room. 10:44:01 Patient transfered to Pre/Post Procedure Room with Stretcher. 10:44:03 Procedure ended. 10:44:03 Full Disclosure recording stopped 10:44:08 End room use (Document Last) Intervention Summary Intervention Notes Time ActionType Lesion and Equipment Action# Pressure Duration Attributes Used 10:34:40 Place stent Mid LAD COBRA RX 1 13 00:10 3.0 X 24 Stent 10:34:49 Reinflate Mid LAD COBRA RX 2 17 00:10 stent 3.0 X 24 balloon Stent Device Usage Item Name Manufacture Quantity Catalog Hospital Part Current Minimal Lot# / Number Charge Number Stock Stock Serial# Code ACIST Syringe Acist 1 06932 753392 904192 919634 20 (30478) Medical Systems Inc Medline Cath Medline 1 [id number] 282801 15412 360003 5 Pack ([id number]) Bag Decanter Microtek 1 2001S 498737 18143 477415 5 () Medical Inc. ACIST Hand Acist 1 47731 027394 590109 410022 5 Control Medical (17277) Systems Inc ACIST Manifold Acist 1 91810 735088 271114 106402 5 (14195) Medical Systems Inc Tegaderm 4 x 4 3M 1 1626W 614973 865270 192652 5 (1626W) MBrace Wrist Advanced 1 140-0250-00 042752 06864 669213 5 Support Vascular ([id number]) Dynamics SHEATH 6FR Terumo 1 [id number] 261404 684546 186505 5 Slender (80-1060) DIAGNOSTIC St Riccardo 1 870216 529058 518522 483440 30 WIRE .035 260cm J wire (623581) DIAGNOSTIC Terumo 1 40-5013 456028 754450 001134 5 [place] 110cm 5 Fr catheter (569927) [facility] 1 83182X 690017 967442651 383014 5 Verrata Plus pressure wire (56023C) INFLATOR Merit Merit 1 OF5679 200799 864846 371887 15 [facility] (RU7794) GUIDE 6FR Cardinal 1 [id number] 750062 940715 835207 10 XBLAD 3.5 Health catheter (97218069) COBRA RX 3.0 X Celonova 1 520-03-68749 276041 [id number] 147373 5 [id number] 24 stent Biosciences (293-70-96231) TR BAND Terumo 1 IGG59-FZB 383683 610085 942727 40 Standard ([id number]) Signature Audit [place]land Stage Time Signature Unsigned Intra-Procedure 10/05/2018 Shaji Pryor 10:44:28 AM RT(R) Signatures Monitor : Shaji Pryor RT Signature : Date : Time : [address] [place] [address]
[~2018-10-05 08:04] MED LIST changes: -COREG6.25 MG; -DECADRON0.5 MG PO; -ENTRESTO 49 MG1 EACH PO; -PROTONIX40 MG PO
[2018-10-05] MEDS ORDERED: PROTONIX40 MG PO (08:25)
[2018-10-05] MEDS ORDERED: DECADRON0.5 MG PO (08:25)
[2018-10-05] MEDS ORDERED: ENTRESTO 49 MG1 EACH PO (08:26)
[2018-10-05] MEDS ORDERED: COREG6.25 MG (08:26)
[2018-10-05 08:40] VITALS: BP 128/77; Ht 172.7 cm; Wt 87.7 kg
[2018-10-05 08:45] LABS: BASOPHILS 0.6 % (0-2); EOSINOPHILS 2.4 % (0-7); HEMATOCRIT 48.1 % (42.0-54.0); HEMOGLOBIN 16.8 g/dL (13.5-17.5); IMMATURE GRANULOCYTES 0.2 % (0-5); LYMPHOCYTES 20.5 % (15-50); MCH 29.4 pg (26.0-34.0); MCHC 34.9 g/dL (31.0-37.0); MCV 84.1 fL (80.0-100.0); MEAN PLATELET VOLUME 10.9 fL (7.4-10.4); MONOCYTES 10.7 % (2-11); NEUTROPHILS 65.6 % (40-80); PLATELET COUNT 200 10x3/uL (130-400); RBC 5.72 10x6/uL (4.20-6.10)
[2018-10-05 08:53] LABS: ANION GAP 12.7 mmol/L (8-16); CALCIUM 8.7 mg/dL (8.5-10.1); CARBON DIOXIDE 25.5 mmol/L (21.0-32.0); CREATININE - SERUM 1.1 mg/dL (0.6-1.3); POTASSIUM - SERUM 4.2 mmol/L (3.5-5.1)
[2018-10-05] MEDS ORDERED: PLAVIX75 MG PO (10:53)
--- NOTE | 2018-10-05 16:42 | OP ---
PATIENT NAME: OTILIA PAZ MEDICAL RECORD: [id number] :57 LOCATION:D.CAT ADMISSION DATE: SURGEON: STANTON NICE MD DATE OF OPERATION: 10/05/2018 DATE OF SERVICE: 10/05/2018 PROCEDURES: 1. PTCA stent LAD. 2. Left heart catheterization. 3. Selective coronary angiography. 4. Left ventriculogram. 5. IFR LAD. 6. IFR left circumflex. INDICATION: Angina and coronary artery disease, shortness of breath, cardiomyopathy, abnormal nuclear stress test. DESCRIPTION OF PROCEDURE: After informed consent was obtained and after a detailed description of the risks, benefits as well as alternative therapies, the patient elected to proceed with angiogram and angioplasty. The right radial area was prepped and draped in normal sterile fashion. Right radial artery was cannulated via modified Seldinger technique with placement of 6-Occitan sheath. All catheters exchanged through this sheath. FINDINGS: The left ventriculogram was performed in standard 30-degree ISLAS view, reveals anteroapical hypokinesis, ejection fraction of 35%. This is a new finding from his last left ventricular measurement. SELECTIVE CORONARY ANGIOGRAPHY: 1. Left main showed no significant angiographic disease. 2. Left anterior descending has previously placed stents, 75% in-stent restenosis in the mid vessel. An IFR is abnormal at 0.82. 3. Left circumflex has previously placed stents. There is a questionable area in the mid vessel; however, IFR was normal at 0.87. 4. Right coronary is large, dominant, with mild irregularities, but no significant disease. PTCA STENT OF THE LAD: The stent used was a 3.0 x 24 mm Cobra. Result was 0% residual stenosis. OVERALL IMPRESSION: Successful percutaneous transluminal coronary angioplasty stent of the left anterior descending going from 75% initial stenosis that was in-stent restenosis to 0% residual. TRANSINT:[id number] Voice Confirmation ID: [id number] DOCUMENT ID: [id number] OPERATIVE REPORT [id number] OTILIA PAZ JEFFREY MD at 1642 CC: [id number] DICTATION DATE: 10/05/18 1043 SOLUTION DIRECTOR: 10/05/18 1126 DEP CLI 10/05/18 [place] [id number]
== END 2018-10-05 14:50 | disposition home or self-care (01) ==
LOC: D.CATH 08:04
PROVIDERS: ATTEND Internal Medicine Interventional Cardiology
DX: I25.10 Atherosclerotic heart disease of native coronary artery without angina pectoris (principal); R94.30 Abnormal result of cardiovascular function study, unspecified; R06.02 Shortness of breath

== ENCOUNTER → 2018-10-18 07:25 | Outpatient (CLI) | payer BC ==
[2018-10-05 08:40] VITALS: BMI 29.4
[~2018-10-18 07:25] MED LIST changes: +COREG6.25 MG; +DECADRON0.5 MG PO; +ENTRESTO 49 MG1 EACH PO; +PROTONIX40 MG PO
== END | disposition home or self-care (01) ==
LOC: D.NM 07:25
PROVIDERS: ATTEND Family Medicine
DX: R10.9 Unspecified abdominal pain (principal)

== ENCOUNTER → 2018-12-05 13:19 | Outpatient (CLI) | payer BC ==
[2018-10-05 08:40] VITALS: BMI 29.4
--- NOTE | 2018-12-10 18:38 | EC ---
PATIENT:OTILIA PAZ DATE OF SERVICE: 12/05/18 SEX: M MEDICAL RECORD: [id number] DATE OF : 57 LOCATION:[facility] AGE OF PATIENT: 63 ADMISSION DATE: 12/05/18 REFERRING PHYSICIAN: INTERPRETING PHYSICIAN: STANTON BARRIGA MD ECHOCARDIOGRAM REPORT ECHO CHARGES 4 ECHO COMPLETE Date: 12/05/18 CLINICAL DIAGNOSIS: SOB/CORREIA/CHF/CARDIOMYOPATHY H/O CAD/HTN ECHOCARDIOGRAPHIC MEASUREMENTS (adult normal given) AC root (d.<3.7cm) 2.7 cm LV Septum d (<1.2 cm> 1.0 cm Valve Excursion 2.0 cm LV Septum (systole) 1.6 cm Left Atria (s.<4.0cm> 4.6 cm LVPW d(<1.2cm) 0.8 cm RV (d.<2.3cm) 2.7 cm LVPW (sytole) 1.1 cm LV diastole(<5.6CM) 6.9 cm MV E-F(>70mm/sec) cm LV systole 5.0 cm LVOT Diameter 2.0 cm MV exc.(>10mm) cm Est.ejection fraction (50-75%) % DOPPLER: LVIT cm/sec A 97.0 cm/sec E 67.0 cm/sec LA cm/sec RVSP 26.0 mmHg LVOT 120 cm/sec AOP1/2T m/s Asc. Ao 121 cm/sec RVOT 70.0 cm/sec RA cm/sec PA 88.0 cm/sec AV Gradient Peak 5.9 mmHg AV Mean 3.1 mmHg AV Area 3.2 cm MV Gradient Peak 5.2 mmHg MV Mean 1.7 mmHg MV Area cm COMMENTS: OP - HC Activity Aid: Rossy HARTMAN SIERRA Baking Assistant: 1 Dr. Barriga TAPE# PACS Pericardial Effusion N DATE OF SERVICE: 12/05/2018 FINDINGS: 1. Left ventricular chamber size is mildly dilated. Left ventricular systolic function is preserved at 55%. 2. Left atrium, right atrium, and right ventricular chamber sizes are mildly dilated. Left atrium measures 4.6 cm. 3. Valvular structures have normal structure and motion. 4. Doppler interrogation reveals mild mitral regurgitation and trace tricuspid regurgitation. No other valvular insufficiency or stenosis. ECHOCARDIOGRAM REPORT [id number] OTILIA PAZ 5. No evidence of pericardial effusion or left ventricular thrombus. TRANSINT:[id number] Voice Confirmation ID: [id number] DOCUMENT ID: [id number] STANTON BARRIGA MD at 1838 CC: [id number] DICTATION DATE: 12/05/18 171 HOUSE PIPING INSPECTOR: 12/05/181914 DEP CLI 12/05/18 [facility] [address] [id number]
== END | disposition home or self-care (01) ==
LOC: D.HCCARDIO 13:19
PROVIDERS: ATTEND Internal Medicine Interventional Cardiology
DX: I25.10 Atherosclerotic heart disease of native coronary artery without angina pectoris (principal)

== ENCOUNTER 2019-02-03 16:26 | Observation (INO) | payer BC ==
[~2019-02-03] VITALS: Ht 172.7 cm; Wt 85.1 kg
--- NOTE | ~2019-02-03 | HEMODYNAMI ---
PATIENT:OTILIA PAZ MEDICAL RECORD: [id number] : 57 [facility] [facility] [id number] ADMISSION DATE: 02/03/19 Generatedon:02/04/201913:12 Patient name: OTILIA PAZ Patient #: [id number] : 1955 Date of study: 02/04/2019 Page: Of Hemodynamic Procedure Report Patient Data Patient Demographics Procedure consent was obtained First Name: OTILIA Gender: Male Last Name: BRANDI : 1955 Middle Initial: ORLANDO Age: 63 year(s) Patient #: [id number] Race: SSN: [id number] Additional ID: [id number] Contact details Address: [address] [place] [address] rd State: [place] City: [place] Zip code: [address] Past Medical History Allergies Allergen Reaction Date Comments Reported Statins 11/24/2017 Statins 11/24/2017 Other allergy 10/05/2018 Niacin, Statins Other allergy 02/04/2019 STATINS, NIACIN Admission Admission Data Admission Date: 02/03/2019 Admission Time: 18:35 Room #: [facility] Insurance Payor: Private health insurance [facility] #: [id number] Height (in.): 67.72 BSA: 1.99 (m2) Height (cm.): 172 BMI: 29.07 (kg/m2) Weight (lbs.): 189.6 Weight (kg.): 86 Lab Results Lab Result Date: 02/04/2019 Lab Result Time: 0:00 Biochemistry Name Units Result Min Max BUN mg/dl 20 --(----)*- 7 18 Creatinine mg/dl 1 --(--*-)-- 0.6 1.3 eGFR ml/min 79.03827 *-(----)-- 90 120 NONAFRICAN CBC Name Units Result Min Max Hematocrit % 45.3 --(-*--)-- 42 54 Hemoglobin g/dl 16.6 --(---*)-- 13.5 17.5 Procedure Procedure Types Cath Procedure Diagnostic Procedure [facility] w/Coronaries FFR/IVUS FFR Initial Intra-Coronary IVUS Initial Sedation Charges Moderate Sedation up to 15 minutes Procedure Description Procedure Date Procedure Date: 02/04/2019 Procedure Start Time: 12:50 Procedure End Time: 13:09 Procedure Staff Name Function Gonzalo Barriga MD Performing Physician Chio Fam RT Monitor Merry Navarrete RT Scrub Jennifer Castrejon RN Nurse Indication CAD Non-Q wave WA Procedure Data Cath Procedure Fluoroscopy Diagnostic fluoroscopy Total fluoroscopy Time: 4 time: 4 min min Diagnostic fluoroscopy Total fluoroscopy dose: 776 dose: 776 mGy mGy Contrast Material Contrast Material Type Amount (ml) Isovue 300 90 Entry Location Entry Primary Successful Side Size Upsize Upsize Entry Closure Succes sful Closure Location (Fr) 1 (Fr) 2 (Fr) Remarks Device Remarks Femoral Right 5 Fr 5 Fr Exoseal artery Estimated blood loss: 10 ml Diagnostic catheters Device Type Used For End Catheter Placement MULTIPACK Pigtail 5 Fr Procedure catheter MULTIPACK JL 4.0 5Fr Procedure catheter MULTIPACK 3DRC 5Fr Procedure catheter Procedure Complications No complications Procedure Medications Medication Administration Route Dosage 0.9% NaCl I.V. 100 ml/hr Oxygen etCO2 Nasal cannula 2 l/min Lidocaine 2% added to field 20 Heparin Flush Bag added to field 2 bags (1000units/500ml NS) Versed I.V. 2 mg Fentanyl I.V. 100 mcg Versed I.V. 2 mg Fentanyl I.V. 50 mcg Heparin Bolus I.V. 4000 units Plavix P.O. 75 mg Hemodynamics Rest BSA: 1.99 (m2) HGB: 16.6 (g/dl) O2 Consumption: Estimated: 237.19 (ml/min) O2 Co nsumption indexed: Estimated:119.19 (ml/min/m) Heart Rate: 75 (bpm) Snapshots Pre Cath Intra NCS Post Cath Vital Signs Time Heart Resp SPO2 etCO2 NIBP (mmHg) Rhythm Pain Sedation Rate (ipm) (%) (mmHg) Status Level (bpm) 12:27:28 80 21 99 30 136/86(109) NSR 0 (11) 10(A) , No pain 12:31:36 78 18 100 27 140/75(120) NSR 0 (11) 10(A) , No pain 12:35:39 78 14 100 24 140/84(108) NSR 0 (11) 10(A) , No pain 12:39:49 70 19 98 27.8 128/69(99) NSR 0 (11) 10(A) , No pain 12:43:59 69 17 97 28.5 123/71(91) NSR 0 (11) 10(A) , No pain 12:48:03 79 19 97 29.3 126/78(99) NSR 0 (11) 10(A) , No pain 12:52:07 69 15 97 28.5 126/77(91) NSR 0 (11) 10(A) , No pain 12:56:12 78 18 98 24 124/75(99) NSR 0 (11) 9(A) , No pain 13:00:20 78 14 96 13.5 127/72(98) NSR 0 (11) 9(A) , No pain 13:04:28 76 17 97 21.7 126/70(89) NSR 0 (11) 9(A) , No pain 13:08:36 72 18 98 31.5 128/73(97) NSR 0 (11) 10(A) , No pain Medications Time Medication Route Dose Verified Delivered Reason Notes Effectiveness by by 12:37:27 0.9% NaCl I.V. 100 Gonzalo Jennifer used for ml/hr Nithya Castrejon starch factory laborer 12:37:34 Oxygen etCO2 2 Gonzalo Jennifer used for Nasal l/min Nithya Castrejon procedure cannula RN 12:37:38 Lidocaine 2% added 20ml Gonzalo Jennifer for local to vial Nithya Castrejon anesthetic field RN 12:37:42 Heparin Flush added 2 Gonzalo Jennifer used for Bag to bags Nithya Castrejon procedure (1000units/500ml field RN NS) 12:45:05 Fentanyl I.V. 100 Gonzalo Jennifer for sedation mcg Nithya Castrejon RN 12:45:53 Versed I.V. 2 mg Gonzalo Jennifer for sedation Nithya Castrejon RN 12:52:14 Versed I.V. 2 mg Gonzalo Jennifer for sedation Nithya Castrejon RN 12:52:21 Fentanyl I.V. 50 Gonzalo Jennifer for sedation mcg Nithya Castrejon RN 12:58:59 Heparin Bolus I.V. 4000 Gonzalo Rodriguez for verified units Nithya Castrejon antiplatelet with RN therapy Nithya 12:59:12 Plavix P.O. 75 mg Gonzalo Rodriguez for Nithya Castrejon antiplatelet RN therapy Procedure Log Time Note 12:08:25 Signed procedure consent form obtained from patient. 12:08:28 Procedure Status Urgent Heart Cath (IP). 12:08:29 Time tracking: Regular hours (M-F 7:00 - 5:00) 12:08:32 Plan of Care:Hemodynamics will remain stable., Cardiac rhythm will remain stable., Comfort level will be maintained., Respiratory function will remain adequate., Patient/ family verbilizes understanding of procedure., Procedure tolerated without complication., Recovers from procedure without complications.. 12:08:55 Patient allergic to Other allergySTATINS, NIACIN 12:09:31 Lab Result : BUN 20 mg/dl 12::31 Lab Result : Creatinine 1 mg/dl 12::31 Lab Result : eGFR NONAFRICAN 79.35409 ml/min 12:09:31 Lab Result : Hemoglobin 16.6 g/dl 12:09:31 Lab Result : Hematocrit 45.3 % 12:09:40 Patient Weight : 189.6 lbs 12:09:43 Patient Height : 67.72 inches 12:10:11 Insurance Payor : Private health insurance 12:11:09 Diagnostic Cath Status : Urgent 12:11:10 PCI Cath Status : Urgent 12:11:17 Indication : CAD 12:11:43 Indication : Non-Q wave WA 12:12:21 Chio Fam RT(R) sent for patient. Start room use. 12:26:22 Patient received from Med II to CCL 2 Alert and oriented. Tansferred to table in Supine position. 12:26:23 Warm blankets applied, and chris hugger turned on for patient comfort. 12:26:24 Correct patient and procedure confirmed by team. 12:26:24 ECG and BP/O2 sat monitors applied to patient. 12:26:25 Vital chart was started 12::32 Rhythm: sinus rhythm 12:26:35 Full Disclosure recording started 12:26:38 H&P Date Dictated: 02/04/2019 New H&P dictated by physician.. 12:26:40 Pre-procedure instructions explained to patient. 12::40 Pre-op teaching completed and patient verbalized understanding. 12::42 Family in patients room. 12::43 Patient NPO since Midnight. 12::45 Is the patient allergic to Iodine/contrast media? No. 12:26:46 Was the patient premedicated? No 12:26:47 Is patient on blood thinner?Yes 12::49 ACC The patient was administered the following blood thiners within the last 24 hours: ACCPlavix 12:26:51 Patient diabetic? No. 12::53 Previous problem with sedation/anesthesia? No ? 12::54 Snore? Yes 12::55 Sleep apnea? No 12::56 Deviated septum? No 12::56 Opens mouth fully? Yes 12:26:57 Sticks out tongue? Yes 12:26:59 Airway obstruction? No ? 12:27:02 Dentures? No ? 12:27:05 Pre procedure: right dorsailis pedis pulse 2+ Normal; easily identifiable; not easily obliterated 12:27:06 Pre procedure: left dorsailis pedis pulse 2+ Normal; easily identifiable; not easily obliterated 12:27:09 Patient pain scale 0/10 ?. 12:27:15 IV patent on arrival in right hand with 0.9% NaCl at [facility]. 12:27:18 Lab results completed and on chart. 12:27:25 Right groin area was prepped with chlora-prep and draped in sterile fashion 12:27:26 Alarms reviewed by R. N. 12:27:27 Sharps counted by scrub and verified by R.N. 12:31:19 Baseline sample Acquired. 12:37:27 0.9% NaCl 100 ml/hr I.V. was administered by Jennifer Castrejon RN; used for procedure; 12:37:34 Oxygen 2 l/min etCO2 Nasal cannula was administered by Jennifer Castrejon RN; used for procedure; 12:37:38 Lidocaine 2% 20ml vial added to field was administered by Jennifer Castrejon RN; for local anesthetic; 12:37:42 Heparin Flush Bag (1000units/500ml NS) 2 bags added to field was administered by Jennifer Castrejon RN; used for procedure; 12:38:21 Use device set Femoral Dx 12:38:22 ACIST Syringe (90531) opened to sterile field. 12:38:22 Bag Decanter (2002S) opened to sterile field. 12:38:23 ACIST Hand Control (69707) opened to sterile field. 12:38:24 ACIST Manifold (74114) opened to sterile field. 12:38:25 Tegaderm 4 x 4 (1626W) opened to sterile field. 12:38:26 Medline Cath Pack ([id number]) opened to sterile field. 12:38:26 DIAGNOSTIC Multipack 5Fr catheter set (HH9104) opened to sterile field. 12:38:27 SHEATH 5FR Magalia (QNC697) opened to sterile field. 12:38:28 EMERALD Guide Wire (033-041) opened to sterile field. 12:38:55 Zero performed for pressure channel P1 12:44:34 --------ALL STOP TIME OUT------ 12:44:34 Final Timeout: patient, procedure, and site verified with staff and physician. All members of the team are in agreement. 12:44:35 Right groin site verified by team. 12:44:39 Fire Safety Assessment: A--An alcohol-based skin anteseptic being used preoperatively., C--Open oxygen or nitrous oxide is being used., D--An ESU, laser, or fiber-optic light is being used. 12:44:43 Physical assessment completed. ASA score P 2 - A patient with mild systemic disease as per Gonzalo Barriga MD. 12:44:45 2) 60-89 Mildly reduced kidney function, and other findings (as for stage 1) point to kidney disease. 12:44:48 Maximum allowable contrast dose (3.7 X eGFR X 0.75)222 ml. 12:44:51 Sedation plan: IV Moderate Sedation Medication:Versed, Fentanyl 12:45:05 Fentanyl 100 mcg I.V. was administered by Jennifer Castrejon RN; for sedation; 12:45:53 Versed 2 mg I.V. was administered by Jennifer Castrejon RN; for sedation; 12:49:27 Procedure started. 12:50:00 Local anesthetic to right femoral artery with Lidocaine 2% by Gonzalo Barriga MD.INITIAL ACCESS ONLY 12:50:14 PT. IV IN THE RIGHT WRIST 12:50:53 A 5 Fr sheath was inserted into the Right Femoral artery 12:51:12 A MULTIPACK Pigtail 5 Fr catheter was advanced over the wire and used for Procedure. 12:51:21 LV gram done using ISLAS 12:51:23 Injector settings: Ml/sec: 10, Volume: 20, 12:51:40 EF : 40 % 12:51:47 Catheter removed. 12:51:58 A MULTIPACK JL 4.0 5Fr catheter was advanced over the wire and used for Procedure. 12:52:14 Versed 2 mg I.V. was administered by Jennifer Castrejon RN; for sedation; 12:52:21 Fentanyl 50 mcg I.V. was administered by Jennifer Castrejon RN; for sedation; 12:53:21 LCA angiography performed. 12:53:23 Catheter removed. 12:53:35 A MULTIPACK 3DRC 5Fr catheter was advanced over the wire and used for Procedure. 12:54:24 RCA angiography performed. 12:54:25 Catheter removed. 12:54:52 INFLATOR Merit BasixCompak (EA3798) opened to sterile field. 12:54:52 [place] Verrata Plus pressure wire (20957O) opened to sterile field. 12:55:37 GUIDE 5FR EBU 3.5 catheter ([id number]) opened to sterile field. 12:56:06 5 Fr EBU 3.5 guide catheter was inserted over the wire 12:57:02 FFR/IFR wire advanced. 12:57:07 Wire advanced across lesion. 12:57:24 Diag1 lesion measured at .84 with IFR 12:58:59 Heparin Bolus 4000 units I.V. was administered by Jennifer Castrejon RN; for antiplatelet therapy; verified with Dr. Barriga 12:59:12 Plavix 75 mg P.O. was administered by Jennifer Castrejon RN; for antiplatelet therapy; 12:59:52 [place] [facility] IVUS Catheter (83264L) opened to sterile field. 13:00:04 IVUS catheter advanced over wire. 13:00:06 IVUS pass to Diag lesion performed. 13:00:40 IVUS catheter removed over wire. 13:01:00 CHOICE PT Extra Support 182cm wire ([id number]) opened to sterile field. 13:01:43 CHOICE ES 182 wire advanced. 13:01:54 CHOICE WIRE ADVANCED TO THE LAD 13:03:58 Pre PCI Site: [place] Diag1 has 80% stenosis. 13:04:04 Place stent Inflation Number: 1 A VERONICA RX 3.5 x 08 stent ([id number]) was prepped and advanced across the 1st Diag . The stent was deployed at 15 LUIS for 0:10 (min:sec) . 13:04:18 WIRE AND STENT REMOVED FROM THE DIAG 13:05:12 Inflation number: 1 The stent balloon was then re-inflated across the Prox LAD to 9 LUIS for 0:00 (min:sec) . 13:05:36 Balloon removed over the wire. 13:05:37 Wire removed. 13:05:38 Guide catheter removed. 13:06:16 EXOSEAL 5Fr (EX500) opened to sterile field. 13:06:27 Sheath upsized to a 5 Fr. 13:06:27 Sheath removed intact; hemostasis achieved with Exoseal to the Right Femoral artery. 13:06:29 Procedure ended.(Physican Out) 13:07:37 Fluoroscopy time 04.00 minutes. 13:07:40 Fluoroscopy dose: 776 mGy 13:07:40 Flurop Dose total: 776 13:07:45 Dose Area Product 74076 mGy/cm. 13:07:49 Contrast amount:Isovue 300 90ml. 13:07:52 Maximum allowable dose exceeded? No. 13:07:55 Sharps counted by scrub and verified by R.N. 13:07:58 Post-op/insertion site Right Femoral artery dressed using a 4 x 4 and Tegaderm. 13:08:01 Post-procedure physical assessment completed. ASA score P 2 - A patient with mild systemic disease as per Gonzalo Barriga MD. 13:08:03 Post procedure rhythm: sinus rhythm 13:08:07 Estimated blood loss: 10 ml 13:08:09 Post procedure instruction explained to patient.Patient verbalizes understanding. 13:08:11 Patient needs reinforcement of post procedure teaching. 13:08:31 Procedure type changed to Cath procedure, Diagnostic procedure, LHC, LHC w/Coronaries, FFR/IVUS, FFR Initial, Intra-Coronary IVUS Initial, Sedation Charges, Moderate Sedation up to 15 minutes 13:08:54 Procedure and supply charges have been captured, reviewed, submitted and are correct. 13:08:57 Procedure Complication : No complications 13:08:58 Vital chart was stopped 13:08:59 See physician's report for complete and final results. 13:09:00 Report given to Pre/Post Procedure Room. 13:09:03 Patient transfered to Pre/Post Procedure Room with Bed. 13:09:05 Procedure ended. 13:09:05 Full Disclosure recording stopped 13:09:09 End room use (Document Last) Intervention Summary Intervention Notes Time ActionType Lesion and Equipment Used Action# Pressure Duration Attributes 13:04:04 Place stent 1st Diag VERONICA RX 3.5 x 1 15 00:10 08 stent ([id number]) 13:05:12 Reinflate Prox LAD VERONICA RX 3.5 x 1 9 00:00 stent 08 stent balloon ([id number]) Device Usage Item Name Manufacture Quantity Catalog Number Hospital Part Current Minimal Lot# / Charge Number Stock Stock Serial# Code ACIST Syringe Acist 1 93473 529431 842466 223459 20 (95968) Medical Systems Inc Bag Decanter Microtek 1 2002S 631695 52483 097848 5 (2002S) Medical Inc. ACIST Hand Acist 1 19271 424376 434417 122681 5 Control Medical (21719) Systems Inc ACIST Manifold Acist 1 67110 143897 599264 734028 5 (76536) Medical Systems Inc Tegaderm 4 x 4 3M 1 1626W 643863 390448 078527 5 (1626W) Medline Cath Medline 1 [id number] 382475 70556 717710 5 Pack ([id number]) DIAGNOSTIC Cardinal 1 OF2847 722960 73096 036076 30 Multipack 5Fr Health catheter set (QS4994) SHEATH 5FR Terumo 1 GJS112 224743 241097 156935 5 Magalia (ALR676) EMERALD Guide Cardinal 1 502-455 909039 173256 488837 5 Wire (502-455) Health MULTIPACK Cardinal 1 934869 5 Pigtail 5 Fr Health catheter MULTIPACK JL Cardinal 1 984189 5 4.0 5Fr Health catheter MULTIPACK 3DRC Cardinal 1 931727 5 5Fr catheter Health INFLATOR Merit Merit 1 KV4865 544351 114563 999847 15 [facility] (YQ3859) [place] 1 23632A 790645 136830914 115461 5 Verrata Plus pressure wire (57525Y) GUIDE 5FR EBU Medtronic 1 [id number] 923175 438293 606634 1 3.5 catheter (TI4VYK76) [place] 1 76818X 590458 775577 611676 8 [facility] IVUS Catheter (75826M) CHOICE PT Scribner 1 [id number] 458288 210249 521002 5 Extra Support Scientific 182cm wire ([id number]) VERONICA RX 3.5 x Medtronic 1 [id number] 603276 1889950 456703 5 [id number] 08 stent ([id number]) EXOSEAL 5Fr Cardinal 1 EX500 904124 888739 563826 10 (EX500) Health Signature Audit Brea Stage Time Signature Unsigned Intra-Procedure 02/04/2019 Chio Fam 1:12:39 PM RT(R) Signatures Performing Physician : Signature : Gonzalo Barriga MD Date : Time : Monitor : Chio Fam Signature : RT Date : Time : Nurse : Jennifer Castrejon RN Signature : Date : Time : [facility] [address] [place] [address]
[2019-02-03 16:59] LABS: BASOPHILS 0.3 % (0-2); EOSINOPHILS 1.1 % (0-7); HEMATOCRIT 45.3 % (42.0-54.0); HEMOGLOBIN 16.6 g/dL (13.5-17.5); IMMATURE GRANULOCYTES 0.2 % (0-5); LYMPHOCYTES 24.6 % (15-50); MCH 30.8 pg (26.0-34.0); MCHC 36.6 g/dL (31.0-37.0); MEAN PLATELET VOLUME 10.4 fL (7.4-10.4); MONOCYTES 8.9 % (2-11); NEUTROPHILS 64.9 % (40-80); PLATELET COUNT 198 10x3/uL (130-400); RBC 5.39 10x6/uL (4.20-6.10); RDW 12.7 % (11.5-14.5)
[2019-02-03 17:03] LABS: APTT 26.1 SECONDS (22.8-39.4); INR 1.01 (0.85-1.17); PROTIME 12.8 SECONDS (11.6-15.0)
[2019-02-03 17:10] LABS: ALBUMIN 3.6 g/dL (3.4-5.0); ALKALINE PHOSPHATASE 81 U/L (46-116); ALT (SGPT) 19 U/L (10-68); BILIRUBIN - TOTAL 1.12 mg/dL (0.2-1.3); CALC OSMOLALITY 276 mosm/kg (275-300); CALCIUM 8.3 mg/dL (8.5-10.1); CARBON DIOXIDE 24.5 mmol/L (21.0-32.0); CHLORIDE - SERUM 104 mmol/L (98-107); GLUCOSE 105 mg/dL (74-106); POTASSIUM - SERUM 3.9 mmol/L (3.5-5.1); PROTEIN - SERUM 7.3 g/dL (6.4-8.2); SODIUM 137 mmol/L (136-145); UREA NITROGEN 20 mg/dL (7-18); eGFR NON AFRICAN AMERICAN 80 mL/min (90-120)
[2019-02-03 17:25] LABS: CREATINE KINASE 68 UL (21-232); MAGNESIUM - SERUM 1.9 mg/dL (1.8-2.4)
[2019-02-03 17:26] VITALS: BP 117/72
[2019-02-03 17:47] LABS: TROPONIN-I 0.281 ng/mL (0.000-0.060)
--- NOTE | 2019-02-03 17:52 | NUR ---
ERP INFORMED OF ELEVATED TROPONIN 0.281.
[2019-02-03 18:26] VITALS: BP 116/71
--- NOTE | 2019-02-03 19:46 | MORECARE ---
CASE MANAGEMENT DISCHARGE SUMMARY PATIENT: OTILIA PAZ UNIT: [id number] ADM DATE: 02/03/19 AGE: 63 : 57 SEX: M ROOM/BED: D.2120 AUTHOR: KOLE PARNELL PHYSICIAN: REFERRING PHYSICIAN: STANTON NICE MD DATE OF SERVICE: 02/03/19 Discharge Plan Patient Name[facility]LA [facility]Z [facility] [facility] 1955 Planned Disposition: Anticipated Discharge Date: Discharge Date: Expected LOS: Initial Reviewer: [email or web address] Initial Review Date: 02/03/2019 Generated: 02/03/19 8:46 pm Patient Name: OTILIA PAZ Page [id number] at 1945 All edits/amendments must be made on the electronic document DICTATION DATE: 02/03/191945 PROGRAM SCHEDULE CLERK: CHANDU 02/03/191945 RPT#: [id number] DC DATE: STATUS: ADM IN [facility] [address] [place] [address] END OF REPORT
[2019-02-03 19:50] VITALS: BP 134/76; BMI 28.9
--- NOTE | 2019-02-03 20:18 | NUR ---
ADMIT TO ROOM 2120 FROM ER. ALERT/ORIENTED. AMBULATORY. VSS. SB/57 PER TELEMETRY. ADMISSION ASSESSMENT AND HISTORY COMPLETED. HOME MEDS REVIEWED. INSTRUCTED ON NPO AFTER MIDNIGHT UNTIL SEEN BY ALUMINUM WELDER IN AM. PIV SALINE LOCKED TO RIGHT HAND. PLAN OF CARE EXPLAINED AND INITIATED.
--- NOTE | 2019-02-03 20:23 | MORECARE ---
CASE MANAGEMENT DISCHARGE SUMMARY PATIENT: OTILIA PAZ UNIT: [id number] ADM DATE: 02/03/19 AGE: 63 : 56 SEX: M ROOM/BED: D.2120 AUTHOR: KOLE PARNELL PHYSICIAN: REFERRING PHYSICIAN: STANTON NICE MD DATE OF SERVICE: 02/03/19 Discharge Plan Patient Name: OTILIA PAZ Facility: [facility]:[place] : 1955 Planned Disposition: Anticipated Discharge Date: Discharge Date: Expected LOS: Initial Reviewer: [email or web address] Initial Review Date: 02/03/2019 Generated: 02/03/19 9:22 pm External Providers External Provider: OTHER-OTHER Next Contact Date: Service Request Date: Service Type: Resolution: Reviewer: Comments: Last DP export: 02/03/19 6:46 pm Patient Name: OTILIA PAZ Page 72523 at 2022 All edits/amendments must be made on the electronic document DICTATION DATE: 02/03/192021 BALANCE WHEEL MOTION INSPECTOR: CHANDU 02/03/192021 RPT#: [id number] DC DATE: STATUS: [facility] [address] [place] [address] END OF REPORT
--- NOTE | 2019-02-03 21:32 | NUR ---
CHANGED INTO HOSPITAL GOWN. RESTING IN BED. FAMILY HAS GONE HOME FOR THE NIGHT.
[2019-02-03] MEDS ORDERED: KLONOPIN1 MG PO (21:33)
[2019-02-03 22:53] VITALS: Ht 172.7 cm; Wt 85.1 kg
--- NOTE | 2019-02-03 22:56 | NUR ---
DR NICE ON UNIT SEEING PATIENT.
[2019-02-04 00:01] VITALS: BP 108/62
[2019-02-04 04:00] VITALS: BP 115/65
--- NOTE | 2019-02-04 05:32 | NUR ---
CONSENTS FOR HEART CATH SIGNED AND PT NOW RECIEVING PREOP CLIPPING AND CARE. ALERT/ORIENTED. HAS BEEN NPO SINCE MIDNIGHT.
--- NOTE | 2019-02-04 08:23 | NUR ---
ALERT AND ORIENTED X4. RESTING IN BED. AT BEDSIDE. CONSENTS FOR SECURITY GUARDS DISPATCHER SIGNED ON CHART. PRE-OP COMPLETE FOR SECURITY GUARDS DISPATCHER. CONTINUE PLAN OF CARE AND SAFETY PRECAUTIONS.
[2019-02-04 08:47] VITALS: BP 125/67
[2019-02-04 12:05] VITALS: BP 120/69
--- NOTE | 2019-02-04 12:20 | NUR ---
LEFT FOR HOSPITAL WELLNESS COORDINATOR VIA BED.
[2019-02-04] MEDS ORDERED: PLAVIX75 MG PO (13:32)
--- NOTE | 2019-02-04 13:38 | NUR ---
RECEIVED PT FROM [facility], PT IS ALERT AND DENIES ANY C/O PAIN OR NAUSEA. 5 FR EXOSEAL IS CDI, AREA IS SOFT AND NONTENDER. PEDAL PULSES PALPABLE. NSR, RATE IS 69, BP IS 127/77, PT DENIES ANY C/O CHEST PAIN. RESP WITH EASE, SAT IS 98%. HOB IS FLAT, FAMILY AT BEDSIDE, CALL LIGHT IN REACH. BED IS LOCKED AND LOW, SIDE RAILS UP X2.
--- NOTE | 2019-02-04 13:47 | NUR ---
PT IS ALERT, DENIES ANY C/O. DRESSING CDI, PEDAL PULSES 2+. VSS, PT DENIES ANY C/O OR NEEDS AT THIS TIME.
--- NOTE | 2019-02-04 14:44 | NUR ---
PT MACI SIPS OF SPRITE. IS ALERT AND DENIES ANY C/O. DRESSING IS CDI RIGHT GROIN, PEDAL PULSES PALPABLE. RESP WITH EASE, NSR, RATE 69. PT DENIES NEEDS AT THIS TIME, FAMILY AT BEDSIDE.
--- NOTE | 2019-02-04 15:20 | NUR ---
PT ALERT, VISITING WITH FAMILY IN ROOM. DRESSING CDI TO RIGHT GROIN, PEDAL PULSES PALPABLE. VSS, PT DENIES ANY C/O OR NEEDS AT THIS TIME.
--- NOTE | 2019-02-04 15:50 | NUR ---
PT ALERT, DENIES ANY C/O. DRESSING CDI, PEDAL PULSES PALPABLE. VSS. CALL LIGHT IN REACH, DENIES NEEDS AT THIS TIME.
--- NOTE | 2019-02-04 16:19 | NUR ---
HOB ELEVATED AND SANDWICH/ PO FLUIDS SERVED. PT IS ALERT AND DENIES ANY C/O. DRESSING CDI, PEDAL PULSES PALPABLE. VSS, AT BEDSIDE.
--- NOTE | 2019-02-04 16:46 | NUR ---
DRESSING REMAINS CDI, PEDAL PULSES PALPABLE. VSS. PT HAS MACI 100% OF SANDWICH. DENIES NEEDS AT THIS TIME.
--- NOTE | 2019-02-04 17:08 | NUR ---
DRESSING REMAINS CDI, VSS. PEDAL PULSES PALPABLE. PT IS ALERT AND DENIES ANY C/O. IV DC'D WITH CATH INTACT. DC INSTRUCTIONS REVIEWED WITH PT AND WHO VERBALIZE UNDERSTANDING. PLAVIX PRESCRIPTION TO PT WHO VERBALIZES UNDERSTANDING TO START THIS MEDICATION TOMORROW.
--- NOTE | 2019-02-04 17:20 | NUR ---
PT HAS DRESSED FOR DC TO HOME. HAS AMBULATED TO THE BATHROOMAND VOIDED QS. DENIES ANY C/O. PT HAS ALL PERSONAL BELONGINGS AND DC INSTRUCTIONS AT TIME OF DISCHARGE. PT ESCORTED TO PRIVATE AUTO VIA WC BY NURSE WITH DRIVING HIM HOME.
--- NOTE | 2019-02-05 15:50 | MORECARE ---
CASE MANAGEMENT DISCHARGE SUMMARY PATIENT: OTILIA PAZ UNIT: [id number] ADM DATE: 02/03/19 AGE: 63 : 57 SEX: M [facility] AUTHOR: KOLE PARNELL PHYSICIAN: REFERRING PHYSICIAN: STANTON NICE MD DATE OF SERVICE: 02/05/19 Discharge Plan Patient Name: OTILIA [facility]Z [facility] [facility] 1955 Planned Disposition: Anticipated Discharge Date: Discharge Date: 02/04/2019 Expected LOS: Initial Reviewer: [email or web address] Initial Review Date: 02/03/2019 Generated: 02/05/19 4:49 pm Last DP export: 02/03/19 7:23 pm Patient Name: OTILIA PAZ Page [phone] at 1550 All edits/amendments must be made on the electronic document DICTATION DATE: 02/05/19 1549 MEETING PLANNER: CHANDU 02/05/19 1549 RPT#: [id number] DC DATE:02/04/19 STATUS: DIS IN [facility] [address] [place] [address] END OF REPORT
--- NOTE | 2019-02-06 14:32 | HP ---
PATIENT: OTILIA PAZ MEDICAL RECORD: [id number] ACCOUNT: [id number] LOCATION:[facility] : 57 ADMISSION DATE: 02/03/19 PCP: TATYANA WORRELL MD HISTORY AND PHYSICAL EXAMINATION DIAGNOSES: 1. Non-Q-wave myocardial infarction. 2. Coronary artery disease. 3. Previous multivessel percutaneous transluminal coronary angioplasty stent. 4. Cardiomyopathy, ischemic. HISTORY OF PRESENT ILLNESS: Mr. Paz presents with chest discomfort. He was outside doing work around his property and he began having chest pain or chest pressure. It persisted and worsened. He presented to the Emergency Room. Troponin is positive for non-Q-wave myocardial infarction. He is currently pain free. PHYSICAL EXAMINATION: CONSTITUTIONAL/GENERAL APPEARANCE: Well nourished, well developed, appears stated age. EYES: Lids and conjunctivae noninjected. No discharge. No pallor. ENT: Lips within normal limit. No cyanosis. No pallor. NECK: Carotid arteries, bilateral normal upstroke. No bruits. No thrills. No jugular venous pressure or distention. CERVICAL LYMPH NODES: Nontender. Nonenlarged. THYROID: Not enlarged. No nodules. CARDIOVASCULAR: Precordial exam, nondisplaced. No heaves or pericardial thrills. Rate and rhythm, regular. Heart sounds, normal S1, normal S2. No S3, no gallop, no rub. Systolic murmur, not heard. Diastolic murmur, not heard. RESPIRATORY: Respiratory effort, unlabored. Normal curvature. No thoracic deformity. No chest wall tenderness. Percussion, resonant. Auscultation, clear. No wheezes, no rales, no rhonchi. ABDOMEN: Soft, nondistended, nontender. No abdominal pain, no vomiting and normal appetite. MUSCULOSKELETAL: No joint tenderness, normal gait, normal tone. SKIN: Warm and dry. OVERALL IMPRESSION: Non-Q-wave myocardial infarction in a patient with a past history of coronary artery disease and multivessel percutaneous transluminal coronary angioplasty stent. No doubt that he has recurrent hemodynamically significant disease. We will proceed with coronary angiography. Further care depends upon findings of the angiography. TRANSINT:[id number] Voice Confirmation ID: [id number] DOCUMENT ID: [id number] HISTORY AND PHYSICAL [id number] BRANDIOTILIA STANTON FARFAN MD at 1432 CC: [id number] DICTATION DATE: 02/03/19 2254 RECRUITMENT COORDINATOR: 02/03/19 2352 DIS IN 02/04/19 [id number] [place] [address]
--- NOTE | 2019-02-06 14:32 | OP ---
PATIENT NAME: OTILIA PAZ MEDICAL RECORD: [id number] :57 LOCATION:[facility] [id number] ADMISSION DATE:02/03/19 SURGEON: STANTON NICE MD DATE OF OPERATION: 02/04/2019 PROCEDURES: 1. PTCA stent LAD diagonal. 2. PTCA, LAD. 3. IFR. 4. Intravascular ultrasound. 5. Left heart catheterization. 6. Selective coronary angiography. 7. Left ventriculogram. INDICATION: Non-Q-wave myocardial infarction. PROCEDURE IN DETAIL: After informed consent was obtained and after a detailed description of risks, benefits as well as alternative therapies, the patient elected to proceed with angiogram and angioplasty. The right femoral area was prepped and draped in normal sterile fashion. Right femoral artery was cannulated via modified Seldinger technique with placement of 6-Singaporean sheath. All catheters exchanged through this sheath. FINDINGS: Left ventriculogram was performed in standard 30-degree ISLAS view, reveals global hypokinesis, ejection fraction in the 40% range. SELECTIVE CORONARY ANGIOGRAPHY: 1. Left main is with no significant angiographic disease. 2. Left anterior descending and left anterior descending diagonal have previously placed stents. Proximal to the stents in the diagonal, there appears to be significant stenosis. IFR was abnormal at 0.85 and intravascular ultrasound reveals that this is 80% stenosed. 3. Left circumflex has moderate irregularities, but no flow-limiting stenosis. 4. Right coronary artery has moderate irregularities, but no flow-limiting stenosis. PTCA STENT THE LAD DIAGONAL: The stent used was a 3.5 x 8 mm Thien. Result was 0% residual stenosis. This caused plaque shift into the LAD itself. LAD was addressed with a 3.5 stent balloon. Result was 0% residual. IMPRESSION: Successful percutaneous transluminal coronary angioplasty stent of the left anterior descending diagonal going from 80% initial stenosis confirmed by intravascular ultrasound with abnormal IFR to 0% residual. TRANSINT:[id number] Voice Confirmation ID: [id number] DOCUMENT ID: [id number] STANTON NICE MD at 1432 CC: [id number] DICTATION DATE: 02/04/19 1314 M[address]ER [address] [place]: 02/04/19 1324 DIS IN 02/04/19 [place] [address]
--- NOTE | 2019-02-06 14:32 | DS ---
PATIENT:OTILIA PAZ :57 MEDICAL RECORD: [id number] DISCHARGE SUMMARY ADMISSION DATE: 02/03/19 DISCHARGE DATE: 02/04/19 DATE OF DISCHARGE: 02/04/2019. DISCHARGE DIAGNOSES: 1. Non-Q-wave myocardial infarction. 2. Percutaneous transluminal coronary angioplasty stent left anterior descending this admission. 3. Coronary artery disease. 4. Cardiomyopathy, ischemic. 5. Hypertension. 6. Hyperlipidemia. HOSPITAL COURSE: Mr. Paz presents with unstable angina, non-Q-wave myocardial infarction, found to have significant disease of the LAD diagonal, underwent successful PTCA stent of the LAD diagonal, discharged home with the addition of aspirin and Plavix to his medical regimen. He will follow up with [facility] in 1 month. TRANSINT:[id number] Voice Confirmation ID: [id number] DOCUMENT ID: [id number] STANTON NICE MD at 1432 CC: [id number] DICTATION DATE: 02/04/19 1312 SUPERVISOR [place]: 02/05/19 0210 DIS IN 02/04/19 [id number] [place] [address]
== END 2019-02-04 17:20 | disposition home or self-care (01) ==
LOC: D.ER 16:26 → D.M2 18:35 → OBSVTIME 18:35 → D.M2 19:28 → D.CLR 02-04 13:25
PROVIDERS: Emergency Medicine; ADMIT Internal Medicine Interventional Cardiology; ATTEND Internal Medicine Interventional Cardiology
DX: I21.4 Non-ST elevation (NSTEMI) myocardial infarction (principal); I10 Essential (primary) hypertension; E78.5 Hyperlipidemia, unspecified; I25.5 Ischemic cardiomyopathy; I25.110 Atherosclerotic heart disease of native coronary artery with unstable angina pectoris

== ENCOUNTER → 2020-07-24 08:40 | Outpatient (CLI) | payer BC ==
[2019-02-03 22:53] VITALS: BMI 28.9
[~2020-07-24 08:40] MED LIST changes: +KLONOPIN1 MG PO
== END | disposition home or self-care (01) ==
LOC: D.HCCARDIO 07-16 09:30
PROVIDERS: ATTEND Internal Medicine Cardiovascular Disease
DX: I20.9 Angina pectoris, unspecified (principal)

== ENCOUNTER 2020-07-30 06:39 | Day surgery (SDC) | payer BC ==
[~2020-07-30] VITALS: Ht 172.7 cm; Wt 84.6 kg
--- NOTE | ~2020-07-30 | HEMODYNAMI ---
PATIENT:OTILIA PAZ MEDICAL RECORD: [id number] : 57 LOCATION:[facility] ADMISSION DATE: 07/30/20 Generatedon:18:30 Patient name: OTILIA PAZ Patient #: [id number] : 1955 Date of study: 07/30/2020 Page: Of Hemodynamic Procedure Report Patient Data Patient Demographics Procedure consent was obtained First Name: OTILIA Gender: Male Last Name: BRANDI : 1955 [facility] Initial: [place] Age: 65 year(s) Patient #: [id number] Race: SSN: [id number] Additional ID: [id number] Contact details [address]: [address] [place] [address] rd [place] [place] [facility] Zip code: [address] Past Medical History Allergies Allergen Reaction Date Comments Reported Statins 11/24/2017 Statins 11/24/2017 Other allergy 10/05/2018 Niacin, Statins Other allergy 02/04/2019 STATINS, NIACIN Other allergy 07/30/2020 STATINS Admission Admission Data Admission Date: 07/30/2020 Admission Time: 6:39 Arrival Date: 07/30/2020 Arrival Time: 0:00 Admit Source: Other Insurance Payor: Private health insurance [facility] #: [id number] Lab Results Lab Result Date: 07/30/2020 Lab Result Time: 0:00 Biochemistry Name Units Result Min Max BUN mg/dl 20 --(----)*- 7 18 Creatinine mg/dl 1.1 --(--*-)-- 0.6 1.3 eGFR ml/min 70.21771 *-(----)-- 90 120 NONAFRICAN Procedure Procedure Types Cath Procedure Diagnostic Procedure LHC LHC w/Coronaries Sedation Charges Moderate Sedation 10-24 minutes Procedure Description Procedure Date Procedure Date: 07/30/2020 Procedure Start Time: 8:15 Procedure End Time: 8:28 Procedure Staff Name Function Helder Chun MD Performing Physician Tanna Lynch RN Nurse Diann Hood RT Monitor Merry Navarrete RT Scrub Indication Chest pain Procedure Data Cath Procedure Fluoroscopy Diagnostic fluoroscopy Total fluoroscopy Time: 2.8 time: 2.8 min min Diagnostic fluoroscopy Total fluoroscopy dose: 392 dose: 392 mGy mGy Contrast Material Contrast Material Type Amount (ml) Isovue 370 65 Entry Location Entry Primary Successful Side Size Upsize Upsize Entry Closure Zuniga ccessful Closure Location (Fr) 1 (Fr) 2 (Fr) Remarks Device Remarks Radial Right 6 Fr Mechanical artery Short Compression Estimated blood loss: 5 ml Diagnostic catheters Device Type Used For End Catheter Placement DIAGNOSTIC [place] 110cm 5 Procedure Fr catheter ([id number]) DIAGNOSTIC [place] MOD 5Fr Procedure Catheter ([id number]) Procedure Complications No complications Procedure Medications Medication Administration Route Dosage Oxygen etCO2 Nasal cannula 2 l/min Lidocaine 2% added to field 20 Heparin Flush Bag added to field 2 bags (1000units/500ml NS) 0.9% NaCl I.V. 100 ml/hr Versed I.V. 1 mg Fentanyl I.V. 50 mcg Versed I.V. 1 mg Fentanyl I.V. 50 mcg Versed I.V. 1 mg Fentanyl I.V. 25 mcg Radial Cocktail I.A. 1 syringe (Verapamil 2mg/Nitro 400mcg/Heparin 1500units) Versed I.V. 1 mg Hemodynamics Rest Heart Rate: 73 (bpm) Pressure Samples Time Site Value (mmHg) Purpose Heart Use Rate(bpm) 8:19 LV 108/10,45 Snapshot 85 Gradients Valve Time Site Site Mean SEP/DFP Peak To Heart Use 1 2 (mmHg) (sec/min) Peak Rate (mmHg) (bpm) Aortic 8:19 LV AO 86 Snapshots Pre Cath Intra NCS Post Cath Vital Signs Time Heart Resp SPO2 etCO2 NIBP (mmHg) Rhythm Pain Sedation Rate (ipm) (%) (mmHg) Status Level (bpm) 7:58:47 74 12 99 27.1 127/72(103) NSR 0 (11) 10(A) , No pain 8:03:03 68 15 97 0 107/63(83) NSR 0 (11) 10(A) , No pain 8:07:17 69 16 98 16.6 117/64(83) NSR 0 (11) 10(A) , No pain 8:11:31 67 16 97 10.5 113/68(81) NSR 0 (11) 10(A) , No pain 8:15:45 69 17 94 19.6 111/66(84) NSR 0 (11) 9(A) , No pain 8:19:55 84 20 96 24.8 99/62(82) NSR 0 (11) 10(A) , No pain 8:24:05 83 20 93 26.3 110/60(81) NSR 0 (11) 10(A) , No pain 8:28:17 80 19 96 23.3 110/65(85) NSR 0 (11) 10(A) , No pain Medications Time Medication Route Dose Verified Delivered Reason Notes Effectiveness by by 7:59:51 Oxygen etCO2 2 l/min Helder Buffie used for Nasal Adiel Lynch RN procedure cannula 7:59:58 Lidocaine 2% added 20ml Helder Helder for local to vial Adiel Chun MD anesthetic field 8:00:05 Heparin Flush added 2 bags Helder Helder used for Bag to Adiel Chun MD procedure (1000units/500ml field NS) 8:00:13 0.9% NaCl I.V. 100 Helder Buffie Per ml/hr Adiel Lynch RN physician 8:06:19 Versed I.V. 1 mg Helder Buffie for sedation Adiel Lynch RN 8:06:25 Fentanyl I.V. 50 mcg Helder Buffie for sedation Adiel Lynch RN 8:09:51 Versed I.V. 1 mg Helder Buffie for sedation Adiel Lynch RN 8:09:55 Fentanyl I.V. 50 mcg Helder Buffie for sedation Adiel Lynch RN 8:16:38 Versed I.V. 1 mg Helder Buffie for sedation Adiel Lynch RN 8:16:43 Fentanyl I.V. 25 mcg Helder Buffie for sedation Adiel Lynch RN 8:18:38 Radial Cocktail I.A. 1 Helder Helder for (Verapamil syringe Adiel Chun MD vasodilation 2mg/Nitro 400mcg/Heparin 1500units) 8:23:29 Versed I.V. 1 mg Helder Buffie for sedation Adiel Lynch RN Procedure Log Time Note 7:33:29 Diagnostic Cath Status : Elective 7:33:49 Indication : Chest pain 7:39:15 Arrival Date: 07/30/2020 12:00:00 AM 7:39:16 Admit Source: Other 7:39:19 Insurance Payor : Private health insurance 7:42:37 ACC Patient presents with Stable Angina CCS Anginal Class 2--Slight limitation of ordinary activity. 7:42:45 Procedure Status Elective Heart Cath (OP). 7:42:47 Time tracking: Regular hours (M-F 7:00 - 5:00) 7:42:56 Plan of Care:Hemodynamics will remain stable., Cardiac rhythm will remain stable., Comfort level will be maintained., Respiratory function will remain adequate., Patient/ family verbilizes understanding of procedure., Procedure tolerated without complication., Recovers from procedure without complications.. 7:43:11 H&P Date Dictated: 07/30/2020 Within 30 days and on chart.. 7:43:12 Pre-procedure instructions explained to patient. 7:43:12 Pre-op teaching completed and patient verbalized understanding. 7:43:14 Family in waiting room. 7:43:16 Patient NPO since Midnight. 7:43:27 Patient allergic to Other allergySTATINS 7:43:34 Lab results completed and on chart. 7:43:38 Stress Test: yes; abnormal APICAL,LATERAL, INFERIOR 7:46:00 Tanna Lynch RN sent for patient. Start room use. 7:50:14 Patient received from Pre/Post Procedure Room to CCL 1 Alert and oriented. Tansferred to table in Supine position. 7:50:16 Signed procedure consent form obtained from patient. 7:50:17 Warm blankets applied, and chris hugger turned on for patient comfort. 7:50:18 Correct patient and procedure confirmed by team. 7:50:18 ECG and BP/O2 sat monitors applied to patient. 7:50:21 Is the patient allergic to Iodine/contrast media? Yes. 7:50:23 Was the patient premedicated? Yes 7:57:42 Vital chart was started 7:57:43 Baseline sample Acquired. 7:57:46 Rhythm: sinus rhythm 7:57:47 Full Disclosure recording started 7:57:59 Is patient on blood thinner?No 7:58:01 Patient diabetic? No. 7:58:03 Previous problem with sedation/anesthesia? No ? 7:58:05 Snore? Yes 7:58:07 Sleep apnea? No 7:58:08 Deviated septum? No 7:58:08 Opens mouth fully? Yes 7:58:09 Sticks out tongue? Yes 7:58:11 Airway obstruction? No ? 7:58:13 Dentures? No ? 7:58:20 Pre procedure: right dorsailis pedis pulse 1+ Palpable, but thready & weak; easily obliterated 7:58:22 Modified Se's test Ulnar < 7 seconds 7:58:23 Patient pain scale 0/10 ?. 7:58:28 IV patent on arrival in left hand with 0.9% NaCl at [facility]. 7:58:32 Right Radial & Right Groin area was prepped with chlora-prep and draped in sterile fashion 7:58:33 Alarms reviewed by R. N. 7:58:33 Sharps counted by scrub and verified by R.N. 7:58:39 Use device set Radial Dx or PCI 7:58:40 ACIST Syringe (35541) opened to sterile field. 7:58:41 Bag Decanter (2002S) opened to sterile field. 7:58:41 ACIST Hand Control (32438) opened to sterile field. 7:58:42 ACIST Manifold (86311) opened to sterile field. 7:58:43 Tegaderm 4 x 4 (1626W) opened to sterile field. 7:58:44 Medline Cath Pack ([id number]) opened to sterile field. 7:58:46 MBrace Wrist Support ([id number]) opened to sterile field. 7:58:46 NEEDLE Cook 21G 4cm Radial (Z00436) opened to sterile field. 7:58:48 EMERALD Guide Wire (387-945) opened to sterile field. 7:58:48 SHEATH 6FR RAIN (1319844) opened to sterile field. 7:59:51 Oxygen 2 l/min etCO2 Nasal cannula was administered by Tanna Lynch RN; used for procedure; Verbal order read back and verified. 7:59:58 Lidocaine 2% 20ml vial added to field was administered by Helder Chun MD; for local anesthetic; Verbal order read back and verified. 8:00:05 Heparin Flush Bag (1000units/500ml NS) 2 bags added to field was administered by Helder Chun MD; used for procedure; Verbal order read back and verified. 8:00:13 0.9% NaCl 100 ml/hr I.V. was administered by Tanna Lynch RN; Per physician; Verbal order read back and verified. 8:06:08 --------ALL STOP TIME OUT------ 8:06:09 Final Timeout: patient, procedure, and site verified with staff and physician. All members of the team are in agreement. 8:06:11 Right Radial & Right Groin site verified by team. 8:06:15 Fire Safety Assessment: A--An alcohol-based skin anteseptic being used preoperatively., C--Open oxygen or nitrous oxide is being used., D--An ESU, laser, or fiber-optic light is being used. 8:06:19 Versed 1 mg I.V. was administered by Tanna Lynch RN; for sedation; Verbal order read back and verified. 8:06:19 Physical assessment completed. ASA score P 2 - A patient with mild systemic disease as per Helder Chun MD. 8:06:23 Sedation plan: IV Moderate Sedation Medication:Versed, Fentanyl 8:06:25 Fentanyl 50 mcg I.V. was administered by Tanna Lynch RN; for sedation; Verbal order read back and verified. 8:07:50 Lab Result : BUN 20 mg/dl 8:07:50 Lab Result : Creatinine 1.1 mg/dl 8:07:50 Lab Result : eGFR NONAFRICAN 70.49660 ml/min 8:08:16 2) 60-89 Mildly reduced kidney function, and other findings (as for stage 1) point to kidney disease. 8:08:19 Maximum allowable contrast dose (3.7 X eGFR X 0.75)197 ml. 8:09:51 Versed 1 mg I.V. was administered by Tanna Lynch RN; for sedation; Verbal order read back and verified. 8:09:55 Fentanyl 50 mcg I.V. was administered by Tanna Lynch RN; for sedation; Verbal order read back and verified. 8:15:24 Procedure started. 8:15:51 Local anesthetic to right radial artery with Lidocaine 2% by Helder Chun MD.INITIAL ACCESS ONLY 8:16:38 Versed 1 mg I.V. was administered by Tnana Lynch RN; for sedation; Verbal order read back and verified. 8:16:43 Fentanyl 25 mcg I.V. was administered by Tanna Lynch RN; for sedation; Verbal order read back and verified. 8:17:51 A 6 Fr Short sheath was inserted into the Right Radial artery 8:18:38 Radial Cocktail (Verapamil 2mg/Nitro 400mcg/Heparin 1500units) 1 syringe I.A. was administered by Helder Chun MD; for vasodilation; Verbal order read back and verified. 8:18:40 A DIAGNOSTIC [place] 110cm 5 Fr catheter (477903) was advanced over the wire and used for Procedure. 8:18:53 LV gram done using ISLAS 8:19:04 Injector settings: Ml/sec: 5, Volume: 15, 8:19:14 LV hemodynamics recorded. 8:19:36 EF : 40 % 8:20:18 LCA angiography performed. 8:20:20 Injector settings: Ml/sec: 3, Volume: 6, 8:22:10 Catheter exchanged over wire. 8:23:12 A DIAGNOSTIC AR MOD 5Fr Catheter ([id number]) was advanced over the wire and used for Procedure. 8:23:29 Versed 1 mg I.V. was administered by Tanna Lynch RN; for sedation; Verbal order read back and verified. 8:23:53 RCA angiography performed. 8:23:55 Injector settings: Ml/sec: 3, Volume: 6, 8:24:44 Catheter removed. 8:24:50 ZEPHYR REGULAR TR BAND (874121) opened to sterile field. 8:26:08 Sheath removed intact; hemostasis achieved with Mechanical Compression to the Right Radial artery. 8:26:11 Procedure ended.(Physican Out) 8:26:18 Fluoroscopy time 02.80 minutes. 8:26:23 Flurop Dose total: 392 8:26:23 Fluoroscopy dose: 392 mGy 8:26:28 Dose Area Product 07714 mGy/cm. 8:26:31 Contrast amount:Isovue 370 65ml. 8:26:34 Maximum allowable dose exceeded? No. 8:26:35 Sharps counted by scrub and verified by R.N. 8:26:38 [place] band inflated with 10cc of air. 8:26:41 Post Procedure Pulses reassessed and unchanged 8::43 Post procedure: right dorsailis pedis pulse 2+ Normal; easily identifiable; not easily obliterated. 8:26:46 Post-procedure physical assessment completed. ASA score P 2 - A patient with mild systemic disease as per Helder Chun MD. 8:26:50 Post procedure rhythm: unchanged. 8:26:52 Estimated blood loss: 5 ml 8:26:53 Post procedure instruction explained to patient.Patient verbalizes understanding. 8:26:53 Patient needs reinforcement of post procedure teaching. 8:27:52 Procedure type changed to Cath procedure, Diagnostic procedure, LHC, C w/Coronaries, Sedation Charges, Moderate Sedation 10-24 minutes 8:28:25 Procedure and supply charges have been captured, reviewed, submitted and are correct. 8:28:28 Procedure Complication : No complications 8:28:32 [facility] Findings: mild to moderate CAD (<70%) 8:28:33 Operative report dictated upon procedure completion. 8:28:34 See physician's report for complete and final results. 8:28:36 Report given to Pre/Post Procedure Room. 8:28:39 Patient transfered to Pre/Post Procedure Room with Stretcher. 8:28:41 Procedure ended. 8:28:41 Full Disclosure recording stopped 8:28:45 End room use (Document Last) 8:30:04 End room use (Document Last) 8:30:39 Vital chart was stopped Device Usage Item Name Manufacture Quantity Catalog Hospital Part Current Minima l Lot# / Number Charge Number Stock Stock Serial# Code ACIST Acist 1 84996 383155 133804 076311 20 Syringe Medical (66788) Systems Inc Bag Microtek 1 309314 12047 852040 5 Decanter Medical Inc. () ACIST Hand Acist 1 86484 981205 798401 996836 5 Control Medical (55092) Systems Inc ACIST Acist 1 92597 595127 110879 336463 5 Manifold Medical (01664) Systems Inc Tegaderm 4 3M 1 1626W 151820 187180 417466 5 x 4 (1626W) Medline Medline 1 [id number] 170527 98142 155689 5 Cath Pack ([id number]) MBrace Advanced 1 140-0250-00 576652 12007 209780 5 Wrist Vascular Support Dynamics (388393418) NEEDLE Cook Cook Medical 1 W88142 313567 982553 593199 5 21G 4cm Radial (K92718) EMERALD Cardinal 1 502-455 119008 964085 677400 5 Guide Wire Health (502-455) SHEATH 6FR Cardinal 1 9385874 982520 0863209 584972 5 [facility] Health (3225428) DIAGNOSTIC Terumo 1 40-5013 463908 012125 541032 5 [place] 110cm 5 Fr catheter (781692) DIAGNOSTIC Cardinal 1 225117L 610733 844847 998426 15 AR MOD 5Fr Health Catheter (490804K) ZEPHYR Cardinal 1 679066 283134 5747126 248839 5 REGULAR TR Health BAND (712643) Signature Audit [place] Stage Time Signature Unsigned Intra-Procedure 07/30/2020 Diann Hood 8:30:04 AM RT(R) Intra-Procedure 07/30/2020 Helder Chun MD 8:30:38 AM [id number] [place] [address]
[2020-07-30] MEDS ORDERED: NIASPAN500 MG PO (07:03)
[2020-07-30] MEDS ORDERED: HALCION0.25 MG PO (07:03)
[2020-07-30] MEDS ORDERED: VITAMIN D-32000 UNIT PO (07:04)
[2020-07-30 07:38] VITALS: BP 133/77; Ht 172.7 cm; Wt 84.6 kg
[2020-07-30 08:02] LABS: CALCIUM 9.2 mg/dL (8.5-10.1); CARBON DIOXIDE 22.9 mmol/L (21.0-32.0); CHOL - HDL RATIO 3.8 ratio (2.3-4.9); CREATININE - SERUM 1.1 mg/dL (0.6-1.3); LDL-HDL RATIO 2.5 ratio (1.5-3.5); POTASSIUM - SERUM 4.9 mmol/L (3.5-5.1)
--- NOTE | 2020-07-30 08:35 | NUR ---
PT REC'D TO PHOTO MASK INSPECTOR RECOVERY ROOM 10 VIA STRETCHER. MONITORS ESTAB. SEE POST CATH SPECIAL INVESTIGATION UNIT INVESTIGATOR. ALARMS ON AND C/L IN REACH.
--- NOTE | 2020-07-30 08:50 | NUR ---
R WRIST ZBAND SITE C/D/I, NO S/S BLEEDING OR SWELLING. R ARM/HAND WARM WITH PALP PULSES AND BRISK CAP REFILL. VSS. PT DENIES PAIN OR NEEDS. ALARMS ON AND C/L IN REACH.
--- NOTE | 2020-07-30 09:20 | NUR ---
R Z BAND SITE C/D/I, NO S/S BLEEDING OR HEMATOMA. PULSES PALP. PT RESTING QUIETLY. VSS. ALARMS ON AND C/L IN REACH.
[2020-07-30 09:23] LABS: BASOPHILS 0.6 % (0-2); HEMATOCRIT 49.6 % (42.0-54.0); HEMOGLOBIN 17.2 g/dL (13.5-17.5); IMMATURE GRANULOCYTES 0.1 % (0-5); LYMPHOCYTES 23.8 % (15-50); MCHC 34.7 g/dL (31.0-37.0); MCV 86.4 fL (80.0-100.0); MEAN PLATELET VOLUME 10.9 fL (7.4-10.4); MONOCYTES 7.3 % (2-11); NEUTROPHIL ABS# 4.51 10x3/uL (1.78-5.38); NEUTROPHILS 67.2 % (40-80); PLATELET COUNT 193 10x3/uL (130-400); RBC 5.74 10x6/uL (4.20-6.10); RDW 12.7 % (11.5-14.5); WBC 6.7 10x3/uL (4.8-10.8)
--- NOTE | 2020-07-30 09:49 | NUR ---
5CC AIR REMOVED FROM Z BAND, NO S/S BLEEDING OR HEMATOMA. HAND WARM, PULSES PALP. HOB ELEVATED, SANDWICH TRAY AND SPRITE PROVIDED. PT DENIES OTHER NEEDS. ALARMS ON AND C/L IN REACH.
--- NOTE | 2020-07-30 09:53 | NUR ---
I SPOKE WITH PTS RE: DISCHARGE INSTRUCTIONS AND PLAN TO D/C PT HOME AT 1100, NO QUESTIONS AT THIS TIME.
--- NOTE | 2020-07-30 10:15 | NUR ---
PT TOLERATED DIET, NO NAUSEA. VSS. R Z BAND C/D/I, TOTAL 7 CC AIR REMOVED. PULSES PALP. ALARMS ON AND C/L IN REACH.
--- NOTE | 2020-07-30 10:31 | NUR ---
ALL AIR REMOVED FROM Z BAND, NO S/S BLEEDING. R ARM/HAND WARM WITH PALP PULSES. VSS. C/L IN REACH.
--- NOTE | 2020-07-30 10:45 | NUR ---
Z BAND REMOVED, NO S/S BLEEDING OR HEMATOMA - DSG APPLIED.
--- NOTE | 2020-07-30 10:50 | NUR ---
DR. SANDERS IN TO SEE PT, UPDATE GIVEN AND QUESTIONS ANSWERED.
--- NOTE | 2020-07-30 10:54 | NUR ---
PIV D/C'D INTACT, DSG APPLIED. PT ALLOWED UP TO GET DRESSED AND GO TO BR INDEPENDENTLY.
--- NOTE | 2020-07-30 10:58 | NUR ---
ALL DISCHARGE INSTRUCTIONS REVIEWED WITH PT, INCLUDING RESTRICTIONS, MEDS AND F/U APPT. PT VERBALIZES UNDERSTANDING.
--- NOTE | 2020-07-30 11:00 | NUR ---
PT D/C'D TO PRIVATE VEHICLE WITH ALL PAPERWORK AND BELONGINGS.
== END 2020-07-30 11:00 | disposition home or self-care (01) ==
LOC: D.CATH 06:39
PROVIDERS: ATTEND Internal Medicine Cardiovascular Disease
DX: I25.119 Atherosclerotic heart disease of native coronary artery with unspecified angina pectoris (principal); R94.39 Abnormal result of other cardiovascular function study; Z95.5 Presence of coronary angioplasty implant and graft; I25.2 Old myocardial infarction; I10 Essential (primary) hypertension; E78.5 Hyperlipidemia, unspecified; R06.00 Dyspnea, unspecified